=== PATIENT | female | born 1950 | race Caucasian/White ===

== ENCOUNTER 2024-07-02 12:34 | Inpatient (IN) | payer MEDICARE, OTHER ==
--- NOTE | 2024-07-02 12:54 | ED ---
SOB HPI - General Chief Complaint: Shortness of Breath Stated Complaint: AFIB Time Seen by Provider: 07/02/24 12:44 Source: patient, RN notes reviewed, old records reviewed Mode of arrival: EMS Limitations: no limitations - History of Present Illness Initial Comments: This is a 73 female to the ER for evaluation patient presents today for evaluation regards to dyspnea shortness of breath persistent chest pain and shortness of breath here in the emergency department patient shortness of breath weakness and not feeling well here in the ER she does wear oxygen at home but feels like her heart is racing occasional chest pain and severe shortness of br jyotsna SHELBY Complaint: shortness of breath, chest pain, pain with inspiration -: hour(s) Severity: severe Severity scale (1-10): 10 Consistency: constant Improves With: nothing Worsens With: exertion Known History Of: congestive heart failure Context: anxiety Associated Symptoms: denies other symptoms - Related Data Home Medications Medication Instructions Recorded Confirmed Apixaban [Eliquis] 5 mg PO BID 07/02/24 07/02/24 DULoxetine HCL [Cymbalta] 30 mg PO DAILY 07/02/24 07/02/24 Famotidine [Pepcid] 20 mg PO DAILY 07/02/24 07/02/24 Fluticasone/Umeclidin/Vilanter 1 puff INHALATION RT-DAILY 07/02/24 07/02/24 [Trelegy Ellipta 200-62.5-25] Metoprolol Succinate [Metoprolol 25 mg PO BID 07/02/24 07/02/24 Succinate ER] busPIRone HCl [Buspar] 5 mg PO TID 07/02/24 07/02/24 Buprenorphine HCl/Naloxone HCl 2 tab SUBLINGUAL BID 07/03/24 07/03/24 [Buprenorphine-Nalox 2-0.5MG Tb] Previous Rx's Medication Instructions Recorded Bumetanide [BUMEX] 1 mg PO DAILY #30 tab 07/06/24 Allergies Allergy/AdvReac Type Severity Reaction Status Date / Time No Known Allergies Allergy Verified 07/02/24 14:12 Review of Systems ROS Statement: Those systems with pertinent positive or pertinent negative responses have been documented in the HPI. ROS Other: All systems not noted in ROS Statement are negative. Past Medical History Past Medical History: Atrial Fibrillation, Chest Pain / Angina, Heart Failure, COPD, Hyperlipidemia, Hypertension Past Surgical History: Appendectomy, Section, Hysterectomy Additional Past Surgical History / Comment(s): pyloric stenosis , right eye removal Smoking Status: Former smoker General Exam Limitations: no limitations General appearance: alert, in no apparent distress, anxious, in distress Head exam: Present: atraumatic, normocephalic, normal inspection Eye exam: Present: normal appearance, PERRL, EOMI. Absent: scleral icterus, conjunctival injection, periorbital swelling ENT exam: Present: normal exam, mucous membranes moist Neck exam: Present: normal inspection. Absent: tenderness, meningismus, lymphadenopathy Respiratory exam: Present: respiratory distress, wheezes, rhonchi, accessory muscle use, decreased breath sounds, prolonged expiratory. Absent: rales, stridor Cardiovascular Exam: Present: tachycardia, irregular rhythm, normal heart sounds. Absent: systolic murmur, diastolic murmur, rubs, gallop, clicks GI/Abdominal exam: Present: soft, normal bowel sounds. Absent: distended, tenderness, guarding, rebound, rigid Extremities exam: Present: normal inspection, full ROM, normal capillary refill. Absent: tenderness, pedal edema, joint swelling, calf tenderness Back exam: Present: normal inspection Neurological exam: Present: alert, oriented X3, CN II-XII intact Psychiatric exam: Present: normal affect, normal mood Skin exam: Present: warm, dry, intact, normal color. Absent: rash Course Vital Signs 07/02/24 07/02/24 07/02/24 12:36 12:43 14:43 Temperature 98.7 F Pulse Rate 105 H 112 H 85 Respiratory 20 20 20 Rate Blood Pressure 220/113 170/90 O2 Sat by Pulse 95 95 93 L Oximetry 07/02/24 07/02/24 07/02/24 15:00 15:09 15:38 Temperature Pulse Rate 85 89 75 Respiratory 20 20 18 Rate Blood Pressure 170/85 184/101 156/96 O2 Sat by Pulse 93 L 98 99 Oximetry 07/02/24 07/02/24 07/03/24 17:21 18:11 01:20 Temperature Pulse Rate 73 81 81 Respiratory 16 14 16 Rate Blood Pressure 161/81 153/70 156/94 O2 Sat by Pulse 98 98 97 Oximetry 07/03/24 07/03/24 07/03/24 05:30 07:02 07:52 Temperature 98.3 F Pulse Rate 85 77 73 Respiratory 18 19 22 Rate Blood Pressure 189/95 116/95 126/81 O2 Sat by Pulse 98 98 98 Oximetry 07/03/24 07/03/24 07/03/24 08:57 11:03 13:34 Temperature 98.5 F Pulse Rate 86 87 82 Respiratory 20 18 17 Rate Blood Pressure 152/89 161/78 157/79 O2 Sat by Pulse 97 97 97 Oximetry - Reevaluation(s) Reevaluation #1: 07/02/24 19:53 Medical records reviewed Reevaluation #2: 07/02/24 19:53 Patient symptoms are improving blood pressures improved breathing has improved And treatment and blood pressure medication patient's heart rate is improved with key Reevaluation #3: 07/02/24 19:53 Patient informed of results, questions answered, does not feel comfortable going home Reevaluation #4: Was pt. sent in by a medical professional or institution (, PA, STEVEDORING SUPERVISOR, urgent care, hospital, or fpc...) When possible be specific @ -no Did you speak to anyone other than the patient for history (EMS, parent, family, police, friend...)? What history was obtained from this source @ -no Did you review nursing and triage notes (agree or disagree)? Why? @ -agree Are old charts reviewed (outside hosp., previous admission, EMS record, old EKG, old radiological studies, urgent care reports/EKG's, fpc records)? Report findings @ -yes Differential Diagnosis (chest pain, altered mental status, abdominal pain women, abdominal pain men, vaginal bleeding, weakness, fever, dyspnea, syncope, headache, dizziness, GI bleed, back pain, seizure, CVA, palpatations, mental health, musculoskeletal)? @ -prior EKG interpreted by me (3pts min.). @ -yes X-rays interpreted by me (1pt min.). @ -yes negative for acute disease CT interpreted by me (1pt min.). @ -no U/S interpreted by me (1pt. min.). @ -no What testing was considered but not performed or refused? (CT, X-rays, U/S, labs)? Why? @ -none What meds were considered but not given or refused? Why? @ -none Did you discuss the management of the patient with other professionals (professionals i.e. , PA, STEVEDORING SUPERVISOR, lab, RT, psych nurse, social media marketing specialist, weed science research technician, teacher, digital marketing officer, human services case manager)? Give summary @ -no Was smoking cessation discussed for >3mins.? @ -no Was critical care preformed (if so, how long)? @ -yes31 Were there social determinants of health that impacted care today? How? (Homelessness, low income, unemployed, alcoholism, drug addiction, transportation, low edu. Level, literacy, decrease access to med. care, residential, rehab)? @ -none Was there de-escalation of care discussed even if they declined (Discuss DNR or withdrawal of care, Hospice)? DNR status @ -no What co-morbidities impacted this encounter? (DM, HTN, Smoking, COPD, CAD, Cancer, CVA, ARF, Chemo, Hep., AIDS, mental health diagnosis, sleep apnea, morbid obesity)? @ -none Was patient admitted / discharged? Hospital course, mention meds given and route, prescriptions, significant lab abnormalities, going to OR and other pertinent info. @ - 73 female to ER for evaluation of hypertensive emergency atrial fibrillati on with RVR CHF and dyspnea. Patient symptoms are improved here in the ER and continue to improve but will admit for further monitoring of blood pressure control diuresis and heart rate control Admitted Undiagnosed new problem with uncertain prognosis? @ -no Drug Therapy requiring intensive monitoring for toxicity (Heparin, Nitro, Insulin, Cardizem)? @ -no Were any procedures done? @ -no Diagnosis/symptom? @ -Arrhythmia A-fib with RVR CHF Acute, or Chronic, or Acute on Chronic? @ -Acute Uncomplicated (without systemic symptoms) or Complicated (systemic symptoms)? @ -Complicated Side effects of treatment? @ -no Exacerbation, Progression, or Severe Exacerbation? @ -exacerbation Poses a threat to life or bodily function? How? (Chest pain, [place], [place], pneumonia, PE, COPD, DKA, ARF, appy, cholecystitis, CVA, Diverticulitis, Homicidal, Suicidal, threat to staff... and all critical care pts) @ -yes arrhythmia and CHF, extremes of age Reevaluation #5: Differential Dyspnea: Coronary syndrome, arrhythmia, tamponade, asthma, COPD, pulmonary embolism, pneumonia, pneumothorax, pulmonary effusion, anaphylaxis, diabetic ketoacidosis, flailed chest, pulmonary contusion, diaphragmatic rupture, anemia, neuromuscular, this is not meant to be an all-inclusive list. - Consultations Consultation #1: Spoke with Dr. Sr who agrees to admit this patient Medical Decision Making - Medical Decision Making 73 female to ER for evaluation of hypertensive emergency atrial fibrillation with RVR CHF and dyspnea. Patient symptoms are improved here in the ER and continue to improve but will admit for further monitoring of blood pressure control diuresis and heart rate control - Lab Data Result diagrams: 07/05/24 11:20 07/05/24 11:20 Lab Results 07/02/24 07/02/24 07/02/24 Range/Units 12:49 12:49 12:49 WBC 12.8 H (3.8-10.6) k/uL RBC 4.19 (3.80-5.40) m/uL Hgb 12.4 (11.4-16.0) gm/dL Hct 39.4 (34.0-46.0) % MCV 94.0 (80.0-100.0) fL MCH 29.5 (25.0-35.0) pg MCHC 31.4 (31.0-37.0) g/dL RDW 14.2 (11.5-15.5) % Plt Count 216 (150-450) k/uL MPV 8.5 Neutrophils % 78 % Lymphocytes % 17 % Monocytes % 3 % Eosinophils % 1 % Basophils % 0 % Neutrophils # 10.0 H (1.3-7.7) k/uL Lymphocytes # 2.2 (1.0-4.8) k/uL Monocytes # 0.4 (0-1.0) k/uL Eosinophils # 0.1 (0-0.7) k/uL Basophils # 0.0 (0-0.2) k/uL Hypochromasia Slight PT 12.2 (10.0-12.5) sec INR 1.1 (<1.2) APTT 25.6 (22.0-30.0) sec Sodium 138 (137-145) mmol/L Potassium 4.4 (3.5-5.1) mmol/L Chloride 99 (98-107) mmol/L Carbon Dioxide 31 H (22-30) mmol/L Anion Gap 8 mmol/L BUN 11 (7-17) mg/dL Creatinine 0.44 L (0.52-1.04) mg/dL Est GFR (CKD-EPI)AfAm >90 (>60 ml/min/1.73 sqM) Est GFR (CKD-EPI)NonAf >90 (>60 ml/min/1.73 sqM) Glucose 117 H (74-99) mg/dL Plasma Lactic Acid Tee (0.7-2.0) mmol/L Calcium 8.7 (8.4-10.2) mg/dL Phosphorus 2.9 (2.5-4.5) mg/dL Magnesium 1.7 (1.6-2.3) mg/dL Total Bilirubin 0.9 (0.2-1.3) mg/dL AST 36 (14-36) U/L ALT 26 (4-34) U/L Alkaline Phosphatase 55 (38-126) U/L Troponin I (0.000-0.034) ng/mL NT-Pro-B Natriuret Pep 3370 pg/mL Total Protein 7.3 (6.3-8.2) g/dL Albumin 4.2 (3.5-5.0) g/dL TSH 1.800 (0.465-4.680) mIU/L 07/02/24 07/02/24 Range/Units 12:49 12:49 WBC (3.8-10.6) k/uL RBC (3.80-5.40) m/uL Hgb (11.4-16.0) gm/dL Hct (34.0-46.0) % MCV (80.0-100.0) fL MCH (25.0-35.0) pg MCHC (31.0-37.0) g/dL RDW (11.5-15.5) % Plt Count (150-450) k/uL MPV Neutrophils % % Lymphocytes % % Monocytes % % Eosinophils % % Basophils % % Neutrophils # (1.3-7.7) k/uL Lymphocytes # (1.0-4.8) k/uL Monocytes # (0-1.0) k/uL Eosinophils # (0-0.7) k/uL Basophils # (0-0.2) k/uL Hypochromasia PT (10.0-12.5) sec INR (<1.2) APTT (22.0-30.0) sec Sodium (137-145) mmol/L Potassium (3.5-5.1) mmol/L Chloride (98-107) mmol/L Carbon Dioxide (22-30) mmol/L Anion Gap mmol/L BUN (7-17) mg/dL Creatinine (0.52-1.04) mg/dL Est GFR (CKD-EPI)AfAm (>60 ml/min/1.73 sqM) Est GFR (CKD-EPI)NonAf (>60 ml/min/1.73 sqM) Glucose (74-99) mg/dL Plasma Lactic Acid Tee 1.9 (0.7-2.0) mmol/L Calcium (8.4-10.2) mg/dL Phosphorus (2.5-4.5) mg/dL Magnesium (1.6-2.3) mg/dL Total Bilirubin (0.2-1.3) mg/dL AST (14-36) U/L ALT (4-34) U/L Alkaline Phosphatase (38-126) U/L Troponin I <0.012 (0.000-0.034) ng/mL NT-Pro-B Natriuret Pep pg/mL Total Protein (6.3-8.2) g/dL Albumin (3.5-5.0) g/dL TSH (0.465-4.680) mIU/L - EKG Data -: EKG Interpreted by Me (EKG is A-fib 118 QRS 86 QTc 387) - Radiology Data Radiology results: report reviewed (Chest x-ray is positive for CHF), image reviewed Critical Care Time Critical Care Time: Yes Total Critical Care Time: 31 Disposition Clinical Impression: Acute pulmonary edema, Congestive heart failure, Hypertensive emergency, Atrial fibrillation with rapid ventricular response Disposition: ADMITTED IP TO THIS HOSP Condition: Serious Is patient prescribed a controlled substance at d/c from ED?: No Time of Disposition: 19:00
[2024-07-02] MEDS: LABETALOL 5 MG/ML VIAL MDV IVP STA (13:10)
[2024-07-02] MEDS: SODIUM CHLORIDE 0.9% 1,000 ML IV SCH (13:11)
[2024-07-02 13:39] LABS: Basophils % (A) 0 %; Eosinophils # (A) 0.1 k/uL (0-0.7); Eosinophils % (A) 1 %; HCT 39.4 % (34.0-46.0); HGB 12.4 gm/dL (11.4-16.0); Hypochromasia Slight; Lymphocytes # (A) 2.2 k/uL (1.0-4.8); Lymphocytes % (A) 17 %; MCH 29.5 pg (25.0-35.0); MCHC 31.4 g/dL (31.0-37.0); Mean Platelet Volume 8.5; Monocytes # (A) 0.4 k/uL (0-1.0); Monocytes % (A) 3 %; Neutrophils % (A) 78 %; Platelet Count 216 k/uL (150-450); RBC 4.19 m/uL (3.80-5.40); RDW 14.2 % (11.5-15.5); WBC 12.8 k/uL (3.8-10.6)
[2024-07-02 13:52] LABS: ALT 26 U/L (4-34); African American GFR (CKD) >90 (>60 ml/min/1.73 sqM); Albumin 4.2 g/dL (3.5-5.0); Anion Gap 8 mmol/L; Blood Urea Nitrogen 11 mg/dL (7-17); Calcium 8.7 mg/dL (8.4-10.2); Carbon Dioxide 31 mmol/L (22-30); Chloride 99 mmol/L (98-107); Glucose 117 mg/dL (74-99); Non-African American GFR(CKD) >90 (>60 ml/min/1.73 sqM); Phosphorus 2.9 mg/dL (2.5-4.5); Sodium 138 mmol/L (137-145); Total Bilirubin 0.9 mg/dL (0.2-1.3); Total Protein 7.3 g/dL (6.3-8.2)
--- NOTE | 2024-07-02 13:54 | XR ---
EXAMINATION TYPE: XR chest 2V DATE OF EXAM: 07/02/2024 CLINICAL INDICATION: Female, 73 years old with history of Weakness, TECHNIQUE: Frontal and lateral views of the chest are obtained. COMPARISON: Outside chest x-ray January 01, 2024 FINDINGS: There is more prominent cardiomegaly and central vascular congestion on current study on b ackground chronic emphysematous change. The osseous structures are intact. IMPRESSION: Findings suggest CHF exacerbation/fluid overload state. Correlate clinically. [facility], , 07/02/2024 1:52 PM
[2024-07-02 13:57] LABS: INR 1.1 (<1.2); Partial Thromboplastin Time 25.6 sec (22.0-30.0); Prothrombin Time 12.2 sec (10.0-12.5)
[2024-07-02 13:59] LABS: NT-Pro-B-Type Natriuretic Pept 3370 pg/mL
[2024-07-02 14:16] LABS: AST 36 U/L (14-36); Alkaline Phosphatase 55 U/L (38-126); Magnesium 1.7 mg/dL (1.6-2.3); Potassium 4.4 mmol/L (3.5-5.1)
[2024-07-02] MEDS: METOPROLOL TARTRATE 5 MG/5 ML VIAL IVP STA (15:10)
[2024-07-02] MEDS: ACETAMINOPHEN TAB 325 MG TAB PO STA (18:06)
[2024-07-02] MEDS ORDERED: IPRATROPIUM-ALBUTEROL 3 ML NEB INHALATION PRN (19:49)
[2024-07-02] MEDS: FUROSEMIDE 10 MG/ML 4 ML VIAL IV SCH (20:14)
[2024-07-02] MEDS: METOPROLOL TARTRATE 5 MG/5 ML VIAL IVP SCH (21:08)
[2024-07-02] MEDS: NITROGLYCERIN OINT 1 INCH/GM PACKET TOPICAL SCH (23:47)
[2024-07-03] MEDS: ACETAMINOPHEN TAB 325 MG TAB PO PRN (08:48)
--- NOTE | 2024-07-03 09:26 | P.CRDCN ---
History of Present Illness Consult date: 07/03/24 History of present illness: The patient is a pleasant 73-year-old female patient with a past medical history significant for chronic hypoxic respiratory failure on oxygen at home at 2 L as well as history of heart failure and permanent atrial fibrillation as well as multiple comorbid conditions. She presented to the emergency department because she had a visiting nurse checking on her yesterday where she was more short of breath and also she was slightly hypoxic and also was having bilateral lower extremities edema more than her baseline which she was advised to come to the hospital. She underwent further evaluation including an EKG showing atrial fibrillation with controlled heart rate and she is known to have permanent atrial fibrillation. NT proBNP came to be elevated at 3000 with a chest x-ray showed finding consistent with heart failure. She was started on IV diuretics with improvement in her symptoms. Troponin came to be unremarkable. The rest of the blood work came in to be unremarkable. The physical examination is remarkable for irregular rhythm with diminished breathing sounds bilaterally and mild to moderate bilateral lower extremities edema Assessment Heart failure exacerbation of unknown etiology Permanent atrial fibrillation with controlled heart rate Chronic hypoxic respiratory failure Multiple comorbid conditions Plan Continue the current medical regimen including oral anticoagulation and AV betito key agents Follow-up on the echocardiogram which was ordered earlier Continue IV diuretics for additional 24 hours Monitor the kidney function and electrolytes Follow-up with the patient Past Medical History Past Medical History: Atrial Fibrillation, Chest Pain / Angina, Heart Failure, COPD, Hyperlipidemia, Hypertension Past Surgical History: Appendectomy, Section, Hysterectomy Additional Past Surgical History / Comment(s): pyloric stenosis , right eye removal Smoking Status: Former smoker Medications and Allergies Home Medications Medication Instructions Recorded Confirmed Type Apixaban [Eliquis] 5 mg PO BID 07/02/24 07/02/24 History DULoxetine HCL [Cymbalta] 30 mg PO DAILY 07/02/24 07/02/24 History Famotidine [Pepcid] 20 mg PO DAILY 07/02/24 07/02/24 History Fluticasone/Umeclidin/Vilanter 1 puff INHALATION RT-DAILY 07/02/24 07/02/24 History [Trelegy Ellipta 200-62.5-25] Metoprolol Succinate [Metoprolol 25 mg PO BID 07/02/24 07/02/24 History Succinate ER] busPIRone HCl [Buspar] 5 mg PO TID 07/02/24 07/02/24 History Allergies Allergy/AdvReac Type Severity Reaction Status Date / Time No Known Allergies Allergy Verified 07/02/24 14:12 Physical Exam Vitals: Vital Signs Temp Pulse Resp BP Pulse Ox 07/03/24 08:57 86 20 152/89 97 07/03/24 07:52 98.3 F 73 22 126/81 98 07/03/24 07:02 77 19 116/95 98 07/03/24 05:30 85 18 189/95 98 07/03/24 01:20 81 16 156/94 97 07/02/24 18:11 81 14 153/70 98 07/02/24 17:21 73 16 161/81 98 07/02/24 15:38 75 18 156/96 99 07/02/24 15:09 89 20 184/101 98 07/02/24 15:00 85 20 170/85 93 L 07/02/24 14:43 85 20 170/90 93 L 07/02/24 12:43 112 H 20 220/113 95 07/02/24 12:36 98.7 F 105 H 20 95 Intake and Output 07/02/24 07/03/24 07/03/24 22:59 06:59 14:59 Output Total 1000 600 Balance -1000 -600 Output: Urine 1000 600 Results 07/02/24 12:49 07/02/24 12:49 Cardiac Enzymes 07/02/24 07/02/24 07/02/24 Range/Units 12:49 12:49 20:12 AST 36 (14-36) U/L Troponin I <0.012 <0.012 (0.000-0.034) ng/mL 07/02/24 Range/Units 23:24 AST (14-36) U/L Troponin I <0.012 (0.000-0.034) ng/mL Coagulation 07/02/24 Range/Units 12:49 PT 12.2 (10.0-12.5) sec APTT 25.6 (22.0-30.0) sec CBC 07/02/24 Range/Units 12:49 WBC 12.8 H (3.8-10.6) k/uL RBC 4.19 (3.80-5.40) m/uL Hgb 12.4 (11.4-16.0) gm/dL Hct 39.4 (34.0-46.0) % Plt Count 216 (150-450) k/uL Comprehensive Metabolic Panel 07/02/24 Range/Units 12:49 Sodium 138 (137-145) mmol/L Potassium 4.4 (3.5-5.1) mmol/L Chloride 99 (98-107) mmol/L Carbon Dioxide 31 H (22-30) mmol/L BUN 11 (7-17) mg/dL Creatinine 0.44 L (0.52-1.04) mg/dL Glucose 117 H (74-99) mg/dL Calcium 8.7 (8.4-10.2) mg/dL AST 36 (14-36) U/L ALT 26 (4-34) U/L Alkaline Phosphatase 55 (38-126) U/L Total Protein 7.3 (6.3-8.2) g/dL Albumin 4.2 (3.5-5.0) g/dL Current Medications Generic Name Dose Route Start Last Admin Trade Name Freq PRN Reason Stop Dose Admin Acetaminophen 650 mg 07/03/24 08:33 07/03/24 08:48 Acetaminophen Tab 325 Mg Tab PO 650 mg Q6HR PRN Administration Fever and/ or Pain Albuterol/Ipratropium 3 ml 07/02/24 19:49 Ipratropium-Albuterol 3 Ml Neb INHALATION RT-QID PRN Shortness Of Breath Or Wheezing Furosemide 40 mg 07/02/24 20:00 07/03/24 08:46 Furosemide 10 Mg/Ml 4 Ml Vial IV 40 mg Q12H QUINN Administration Sodium Chloride 1,000 mls @ 130 mls/hr 07/02/24 13:00 07/03/24 05:34 Saline 0.9% IV 130 mls/hr .Q7H42M QUINN Administration Metoprolol Tartrate 5 mg 07/02/24 21:00 07/03/24 08:56 Metoprolol Tartrate 5 Mg/5 Ml Vial IVP Not Given BID QUINN Nitroglycerin 1 inch 07/03/24 00:00 07/03/24 06:15 Nitroglycerin Oint 1 Inch/Gm Packet TOPICAL 07/04/24 00:00 1 inch Q6HR QUINN Administration Intake and Output 07/02/24 07/03/24 07/03/24 22:59 06:59 14:59 Output Total 1000 600 Balance -1000 -600 Output: Urine 1000 600 07/02/24 12:49 07/02/24 12:49
[2024-07-03] MEDS: METOPROLOL SUCCINATE (ER) 25 MG TAB.ER.24H PO SCH (11:01)
[2024-07-03] MEDS: DULoxetine HCL 30 MG CAPSULE.DR PO SCH (11:01)
[2024-07-03] MEDS: busPIRone HCl 5 MG TAB PO SCH (11:01)
[2024-07-03] MEDS: APIXABAN 5 MG TAB PO SCH (11:01)
[2024-07-03] MEDS: FAMOTIDINE 20 MG TAB PO SCH (11:02)
[2024-07-03] MEDS: TIOTROPIUM 2.5 MCG INHALER INHALATION SCH (13:02)
[2024-07-03] MEDS ORDERED: busPIRone HCl 5 MG TAB PO SCH (16:00)
[2024-07-03 16:38] LABS: Glucose,Whole Blood 135 mg/dL (70-110)
[2024-07-03] MEDS: KETOROLAC 15 MG/ML 1 ML VIAL IVP STA (17:22)
[2024-07-03] MEDS: ONDANSETRON 4 MG/2 ML VIAL IVP PRN (17:24)
--- NOTE | 2024-07-03 18:22 | CA ---
Transthoracic Echo Report Name: Carolina Rowe Age: 73 Gender: F : 1950 Exam Date: 07/03/2024 15:03 Exam Location: [facility] Ht (in): 64 Wt (lb): 241 Ordering Physician: Morgan Carver MD ([id number]) Attending/Referring Phys: Anchorman Farrah Nguyen RDCS Procedure CPT: Indications: chf Cardiac Hx: Technical Quality: Fair Contrast 1: Total Dose (mL): Contrast 2: Total Dose (mL): MEASUREMENTS (Male / Female) Normal Values 2D ECHO LV Diastolic Diameter PLAX 4.5 cm 4.2 - 5.9 / 3.9 - 5.3 cm LV Systolic Diameter PLAX 3.2 cm IVS Diastolic Thickness 1.1 cm 0.6 - 1.0 / 0.6 - 0.9 cm LVPW Diastolic Thickness 1.1 cm 0.6 - 1.0 / 0.6 - 0.9 cm LV Relative Wall Thickness 0.5 RV Internal Dim ED PLAX 3.6 cm LA Systolic Diameter LX 4.1 cm 3.0 - 4.0 / 2.7 - 3.8 cm LV Diastolic Volume MOD BP 81.8 cm??? 67 - 155 / 56 - 104 cm??? LV Systolic Volume MOD BP 50.5 cm??? 22 - 58 / 19 - 49 cm??? LV Ejection Fraction MOD BP 38.3 % >= 55 % LV Cardiac Index MOD BP 1139.9 cm???/min???m??? LV Diastolic Volume MOD 4C 86.9 cm??? LV Systolic Volume MOD 4C 46.3 cm??? LV Ejection Fraction MOD 4C 46.7 % LV Cardiac Index MOD 4C 1479.0 cm???/min???m??? LV Diastolic Length 4C 6.8 cm LV Systolic Length 4C 5.9 cm LV Diastolic Volume MOD 2C 75.8 cm??? LV Systolic Volume MOD 2C 49.7 cm??? LV Ejection Fraction MOD 2C 34.3 % LV Cardiac Index MOD 2C 947.4 cm???/min???m??? LV Diastolic Length 2C 7.0 cm LV Systolic Length 2C 6.6 cm LA Volume 63.6 cm??? 18 - 58 / 22 - 52 cm??? LA Volume Index 27.9 cm???/m??? 16 - 28 cm???/m??? M-MODE Aortic Root Diameter MM 3.3 cm DOPPLER AV Peak Velocity 155.9 cm/s AV Peak Gradient 9.7 mmHg MV Area PHT 4.2 cm??? MV Deceleration Time 176.0 ms TR Peak Velocity 315.1 cm/s TR Peak Gradient 39.7 mmHg Right Ventricular Systolic Press 52.0 mmHg FINDINGS Left Ventricle Left ventricular ejection fraction is estimated at 50-55 %. Mildly increased septal wall thickness. Mildly increased posterior wall thickness. Mildly increased left ventricular systolic volume. No obvious regional wall motion abnormalities. Right Ventricle Mild right ventricular dilatation. Moderate pulmonary hypertension. Right Atrium Severe right atrial dilatation. No right atrial thrombus or mass seen. Left Atrium Mildly increased left atrial diameter. Moderately increased left atrial volume. Mildly increased left atrial area. No left atrial thrombus or mass present. Mitral Valve Structurally normal mitral valve. Mild mitral regurgitation. Aortic Valve Trileaflet aortic valve. Diffuse thickening (sclerosis) of the aortic valve cusps without reduced excursion. Tricuspid Valve Structurally normal tricuspid valve. Mild tricuspid regurgitation. Pulmonic Valve Pulmonic valve not well visualized. Pericardium No pericardial effusion. Aorta Normal size aortic root and proximal ascending aorta. CONCLUSIONS Normal LV systolic function Poorly visualized intracardiac valves Moderate pulmonary hypertension Mild RV enlargement Previewed by: Dr. Morgan Carver MD (Electronically Signed) Final Date: 03 July 2024 18:21
[2024-07-03] MEDS: SYMBICORT 160-4.5 MCG INHALER INHALATION SCH (19:58)
[2024-07-03] MEDS: BUPRENORPHINE SUBLINGUAL SCH (20:16)
[2024-07-03] MEDS: NALOXONE SUBLINGUAL SCH (20:16)
[2024-07-03] MEDS ORDERED: [UNRECOGNIZED DRUG - OTHER] SUBLINGUAL SCH (21:00)
[2024-07-03] MEDS ORDERED: APIXABAN 5 MG TAB PO SCH (21:00)
[2024-07-03] MEDS ORDERED: METOPROLOL SUCCINATE (ER) 25 MG TAB.ER.24H PO SCH (21:00)
[2024-07-03] MEDS ORDERED: NALOXONE HCL SUBLINGUAL SCH (21:00)
[2024-07-03] MEDS ORDERED: BUPRENORPHINE HCL SUBLINGUAL SCH (21:00)
--- NOTE | 2024-07-04 07:06 | P.PN ---
Subjective Progress Note Date: 07/04/24 The patient is a pleasant 73-year-old female patient with a past medical history significant for chronic hypoxic respiratory failure on oxygen at home at 2 L as well as history of heart failure and permanent atrial fibrillation as well as multiple comorbid conditions. She presented to the emergency department because she had a visiting nurse checking on her yesterday where she was more short of breath and also she was slightly hypoxic and also was having bilateral lower extremities edema more than her baseline which she was advised to come to the hospital. She underwent further evaluation including an EKG showing atrial fibrillation with controlled heart rate and she is known to have permanent a trial fibrillation. NT proBNP came to be elevated at 3000 with a chest x-ray showed finding consistent with heart failure. She was started on IV diuretics with improvement in her symptoms. Troponin came to be unremarkable. The rest of the blood work came in to be unremarkable. The physical examination is remarkable for irregular rhythm with diminished breathing sounds bilaterally and mild to moderate bilateral lower extremities edema July 04, 2024 The patient was seen and evaluated this morning. Overall she is doing better and feeling better. The pressure has improved as well as the heart rate. The echo showed normal LV systolic function with no significant valvular abnormalities. She continues to be on IV Lasix. No blood work as of this morning. The physical examination is remarkable for irregular rhythm with a systolic murmur at the right upper sternal border and diminished breathing sounds bilaterally and bilateral lower extremities nonpitting edema noted. Assessment Heart failure exacerbation of unknown etiology Permanent atrial fibrillation with controlled heart rate Chronic hypoxic respiratory failure Multiple comorbid conditions Plan Continue the current medical regimen including oral anticoagulation and AV betito key agents Continue IV Lasix for additional 24 hours Continue monitor the kidney function and electrolytes Possible discharge in the next 24 hours Objective - Vital Signs Vital signs: Vital Signs Temp 98.7 F 07/04/24 03:20 Pulse 80 07/04/24 03:20 Resp 18 07/04/24 03:20 BP 135/72 07/04/24 03:20 Pulse Ox 95 07/04/24 03:20 FiO2 Intake & Output 07/03/24 07/04/24 07/04/24 18:59 06:59 18:59 Intake Total 240 Output Total 975 650 Balance -735 -650 Weight 109.4 kg 87.5 kg Intake: Oral 240 Output: Urine 975 650 Other: # Voids 1 - Labs CBC & Chem 7: 07/02/24 12:49 07/02/24 12:49 Labs: Abnormal Lab Results - Last 24 Hours (Table) 07/03/24 Range/Units 16:36 POC Glucose (mg/dL) 135 H (70-110) mg/dL
[2024-07-04] MEDS ORDERED: FAMOTIDINE 20 MG TAB PO SCH (09:00)
[2024-07-04] MEDS ORDERED: DULoxetine HCL 30 MG CAPSULE.DR PO SCH (09:00)
[2024-07-04] MEDS: guaiFENesin 600 MG TABLET.ER PO SCH (18:08)
[2024-07-04] MEDS: NYSTATIN 100,000 UNIT/GM POWD 15 GM TOPICAL PRN (22:27)
[2024-07-05 10:15] VITALS: BMI 33.7
--- NOTE | 2024-07-05 11:31 | XR ---
EXAMINATION TYPE: XR chest 1V portable DATE OF EXAM: 07/05/2024 11:08 AM COMPARISON: Chest radiographs from 07/02/2024. CLINICAL INDICATION: Female, 73 years old with history of CHF; TECHNIQUE: XR chest 1V portable Frontal view of the chest. FINDINGS: Lungs/Pleura: There is no evidence of pleural effusion, focal consolidation, or pneumothorax. Pulmonary vascularity: Unremarkable. Heart/mediastinum: Cardiomediastinal silhouette is unremarkable. Atherosclerotic calcifications are seen in the aorta. Musculoskeletal: No acute osseous pathology. IMPRESSION: No acute cardiopulmonary disease/process. [facility], , 07/05/2024 11:29 AM
[2024-07-05 12:07] LABS: Basophils % (A) 0 %; Eosinophils # (A) 0.2 k/uL (0-0.7); Eosinophils % (A) 2 %; HCT 43.7 % (34.0-46.0); HGB 13.4 gm/dL (11.4-16.0); Hypochromasia Marked; Lymphocytes # (A) 2.9 k/uL (1.0-4.8); Lymphocytes % (A) 28 %; MCH 29.6 pg (25.0-35.0); MCHC 30.8 g/dL (31.0-37.0); MCV 96.2 fL (80.0-100.0); Mean Platelet Volume 8.5; Monocytes # (A) 0.5 k/uL (0-1.0); Monocytes % (A) 5 %; Neutrophils # (A) 6.7 k/uL (1.3-7.7); Neutrophils % (A) 64 %; Platelet Count 222 k/uL (150-450); RBC 4.54 m/uL (3.80-5.40); RDW 13.9 % (11.5-15.5); WBC 10.5 k/uL (3.8-10.6)
[2024-07-05 12:26] LABS: ALT 26 U/L (4-34); AST 35 U/L (14-36); African American GFR (CKD) >90 (>60 ml/min/1.73 sqM); Albumin 4.1 g/dL (3.5-5.0); Alkaline Phosphatase 61 U/L (38-126); Blood Urea Nitrogen 23 mg/dL (7-17); Calcium 9.3 mg/dL (8.4-10.2); Chloride 92 mmol/L (98-107); Glucose 121 mg/dL (74-99); Non-African American GFR(CKD) >90 (>60 ml/min/1.73 sqM); Sodium 140 mmol/L (137-145); Total Bilirubin 0.5 mg/dL (0.2-1.3); Total Protein 7.3 g/dL (6.3-8.2)
[2024-07-05 12:32] LABS: Anion Gap 10 mmol/L
[2024-07-05 12:38] LABS: Carbon Dioxide 38 mmol/L (22-30)
--- NOTE | 2024-07-05 14:21 | PN ---
PROGRESS NOTE DATE OF SERVICE: 07/04/2024 CHIEF COMPLAINT: Uncontrolled hypertension and acute congestive heart failure. HISTORY OF PRESENT ILLNESS: This lady is doing much better. She is much less short of breath. Blood pressure is coming down nicely. Echocardiogram shows an ejection fraction of 50% to 55% and pulmonary hypertension. BNP is 3370. REVIEW OF SYSTEMS: She has no complaints of chest pain, shortness of breath, etc. PHYSICAL EXAMINATION: CHEST: Has much improved. There are only occasional rales. CARDIAC: Unremarkable. ABDOMEN: Soft, nontender. IMPRESSION: 1. Acute congestive heart failure. 2. Uncontrolled hypertension. 3. Pulmonary hypertension. PLAN: 1. Increase activity. 2. Possibly home tomorrow. MMODL / IJN: [id number] /
--- NOTE | 2024-07-05 14:21 | HP ---
HISTORY AND PHYSICAL CHIEF COMPLAINT: Uncontrolled hypertension, shortness of breath, and congestive heart failure. HISTORY OF PRESENT ILLNESS: This is another admission for this 73-year-old female who presented to the emergency room with shortness of breath. Blood pressure was markedly elevated at 220/113 with a pulse of 112 in atrial fibrillation. REVIEW OF SYSTEMS: She has had no fever, chills, hemoptysis, chest pain, syncope, etc. Past medical history, family history and personal and social histories are all otherwise unremarkable. She is not allergic to any medication. She has been on Buspar, Eliquis, duloxetine, Suboxone, iron, lisinopril, Trelegy, Toprol, and Lasix. She used to smoke, but no longer. PHYSICAL EXAMINATION: VITAL SIGNS: Blood pressure is 220/113 with atrial fibrillation and ventricular response rate of 112. 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 CHEST: Demonstrated poor breath sounds with rales throughout and decreased breath sounds. CARDIAC: Demonstrates tachycardia. ABDOMEN: Soft, nontender. EXTREMITIES: Normal. NEUROLOGICAL: She is intact. She is admitted to the hospital with diagnoses of: 1. Acute congestive heart failure. 2. Uncontrolled hypertension. 3. Atrial fibrillation. PLAN: 1. Bed rest. 2. IV fluids. 3. Diuresis. 4. Uncontrolled hypertension and arrhythmia. 5. Cardiology consult. MMODL / IJN: [id number] /
--- NOTE | 2024-07-05 14:22 | PN ---
PROGRESS NOTE DATE OF SERVICE: 07/03/2024 CHIEF COMPLAINT: Congestive heart failure and uncontrolled hypertension. HISTORY OF PRESENT ILLNESS: This lady's blood pressure is starting to come down, but is still not normal. She is not having any further chest pain. PHYSICAL EXAMINATION: CHEST: She has scattered rales throughout the chest. CARDIAC: Normal. VITAL SIGNS: Blood pressure is 152/92. IMPRESSION: 1. Congestive heart failure. 2. Uncontrolled hypertension. PLAN: Increase activity and continue to monitor her blood pressure and congestive heart failure. MMODL / IJN: [id number] /
--- NOTE | 2024-07-05 14:55 | P.PN ---
Subjective Progress Note Date: 07/05/24 The patient is a pleasant 73-year-old female patient with a past medical history significant for chronic hypoxic respiratory failure on oxygen at home at 2 L as well as history of heart failure and permanent atrial fibrillation as well as multiple comorbid conditions. She presented to the emergency department because she had a visiting nurse checking on her yesterday where she was more short of breath and also she was slightly hypoxic and also was having bilateral lower extremities edema more than her baseline which she was advised to come to the hospital. She underwent further evaluation including an EKG showing atrial fibrillation with controlled heart rate and she is known to have permanent a trial fibrillation. NT proBNP came to be elevated at 3000 with a chest x-ray showed finding consistent with heart failure. She was started on IV diuretics with improvement in her symptoms. Troponin came to be unremarkable. The rest of the blood work came in to be unremarkable. The physical examination is remarkable for irregular rhythm with diminished breathing sounds bilaterally and mild to moderate bilateral lower extremities edema July 04, 2024 The patient was seen and evaluated this morning. Overall she is doing better and feeling better. The pressure has improved as well as the heart rate. The echo showed normal LV systolic function with no significant valvular abnormalities. She continues to be on IV Lasix. No blood work as of this morning. The physical examination is remarkable for irregular rhythm with a systolic murmur at the right upper sternal border and diminished breathing sounds bilaterally and bilateral lower extremities nonpitting edema noted. 07/05/2024 Patient is seen and examined at bedside this a.m. Patient reports that she is feeling better since time of admission. She is in rate controlled atrial fibrillation at this time Regarding fluid status she appears to be at her baseline state with chronic lower extremity edema. She denies having any new or worsening shortness of breath. On exam S1-S2 is audible, irregularly irregular pulse, mild systolic murmur audible Lungs are clear to auscultate with no crackles or rhonchi Abdomen is nontender, bowel sounds are positive And oriented, no focal neurological deficits, detailed neuroexam was not performed 1-2+ pitting edema bilateral extremity Assessment Acute on chronic HFpEF exacerbation, currently euvolemic Permanent atrial fibrillation with controlled heart rate Chronic hypoxic respiratory failure Multiple comorbid conditions Echo from this admission showed a preserved LV systolic function with a EF of 55%. The quality of the echo was limited with poor visualization of the valvular function. Plan Continue her current cardiac medications, which includes Eliquis 5 mg twice daily Discontinue Lasix and start Bumex 1 mg p.o. daily. This should be the one she should be discharged on for home Patient is cleared from cardiovascular standpoint Recommend outpatient follow-up with primary cardiology specialist in next 1 to 2 weeks. Objective - Vital Signs Vital signs: Vital Signs Temp 97.8 F 07/05/24 08:00 Pulse 75 07/05/24 11:14 Resp 18 07/05/24 11:14 BP 156/67 07/05/24 08:00 Pulse Ox 96 07/05/24 08:00 FiO2 Intake & Output 07/04/24 07/05/24 07/05/24 18:59 06:59 18:59 Intake Total 720 237 360 Output Total 1600 1450 Balance -880 -1213 360 Weight 89 kg 89 kg Intake: Oral 720 237 360 Output: Urine 1600 1450 Other: Voiding Method External Catheter External Catheter External Catheter - Labs CBC & Chem 7: 07/05/24 11:20 07/05/24 11:20 Labs: Abnormal Lab Results - Last 24 Hours (Table) 07/05/24 07/05/24 Range/Units 11:20 11:20 MCHC 30.8 L (31.0-37.0) g/dL Chloride 92 L (98-107) mmol/L Carbon Dioxide 38 H (22-30) mmol/L BUN 23 H (7-17) mg/dL Glucose 121 H (74-99) mg/dL
--- NOTE | 2024-07-05 14:58 | PN ---
PROGRESS NOTE DATE OF SERVICE: 07/05/2024 CHIEF COMPLAINT: Congestive heart failure, hypertension. HISTORY OF PRESENT ILLNESS: This lady is doing a little bit better. She is a little bit less short of breath. Blood pressure is greatly improved. PHYSICAL EXAMINATION: CHEST: She still has occasional rales posteriorly. CARDIAC: Normal. ABDOMEN: Soft, nontender. IMPRESSION: 1. Acute congestive heart failure. 2. Uncontrolled hypertension. PLAN: 1. Repeat chest x-ray and laboratory studies. 2. Increase activity. MMODL / IJN: [id number] /
[2024-07-06] MEDS: BUMETANIDE 1 MG TAB PO SCH (09:57)
[2024-07-07 02:00] VITALS: RESP 19
[2024-07-07 14:49] VITALS: BP 123/70; PULSE 75; TEMP 98.5
--- NOTE | 2024-07-08 02:25 | PN ---
PROGRESS NOTE DATE OF SERVICE: 07/07/2024 CHIEF COMPLAINT: Acute congestive heart failure. HISTORY OF PRESENT ILLNESS: This lady is doing well. When she was asked this morning if she is ready to go, she stated that she was. She is not having any further nausea or vomiting. The nurse called later that she was complaining of vomiting and headache, but nobody has seen her vomit. PHYSICAL EXAMINATION: CHEST: Clear. CARDIAC: Normal. ABDOMEN: Soft and nontender. IMPRESSION: 1. History of acute congestive heart failure. 2. Hypertension. 3. History of nausea and vomiting. 4. Headache. PLAN: Try to discharge the patient. If she refuses to go, she will have to be seen by Neurology. MMODL / IJN: [id number] /
--- NOTE | 2024-07-08 08:10 | PN ---
PROGRESS NOTE CHIEF COMPLAINT: Uncontrolled hypertension and CHF. HISTORY OF PRESENT ILLNESS: It was planned that this lady would go, but now she is complaining of nausea and vomiting. PHYSICAL EXAMINATION: CHEST: Clear. CARDIAC EXAM: Normal. ABDOMEN: Soft and nontender. IMPRESSION: 1. Uncontrolled hypertension. 2. Congestive heart failure. 3. Nausea and vomiting. PLAN: 1. Hold discharge. 2. Antiemetics and continue monitoring her signs and symptoms as well as vital signs. MMODL / IJN: [id number] /
--- NOTE | 2024-07-08 23:07 | DS ---
DISCHARGE SUMMARY CHIEF COMPLAINT: Acute pulmonary edema, shortness of breath. HISTORY OF PRESENT ILLNESS AND PHYSICAL EXAMINATION: Details of this lady's history and physical can be found in the initial workup. LABORATORY STUDIES: While she was in the hospital, she had laboratory studies, details of which can be found in the laboratory section of her chart. COURSE IN THE HOSPITAL: After admission, she was placed on bedrest, started on intravenous fluids and she was diuresed. Blood pressure was brought under control. She was stabilized and doing well. It was planned that she could be discharged and then she developed nausea and vomiting. This was treated and subsided and it was felt that she could go home on the . She will be followed up as an outpatient. FINAL DIAGNOSES: 1. Acute congestive heart failure. 2. Hypertension. 3. Gastroenteritis. OPERATIONS: None. CONSULTATIONS: Cardiology. She is improved. BEATRICE / AUDREY: [id number] /
== END 2024-07-07 15:51 | disposition home or self-care (01) | DRG 291 ==
LOC: EC 12:34 → 3SCARD 19:51 → 4SSUR 07-05 18:25
PROVIDERS: ADMIT Family Medicine; ATTEND Family Medicine
DX: I11.0 Hypertensive heart disease with heart failure (principal); I50.33 Acute on chronic diastolic (congestive) heart failure; I16.1 Hypertensive emergency; I27.20 Pulmonary hypertension, unspecified; Z79.01 Long term (current) use of anticoagulants; J44.9 Chronic obstructive pulmonary disease, unspecified; I48.21 Permanent atrial fibrillation; J96.11 Chronic respiratory failure with hypoxia; E78.5 Hyperlipidemia, unspecified; F41.9 Anxiety disorder, unspecified; Z79.899 Other long term (current) drug therapy; Z87.891 Personal history of nicotine dependence; Z90.01 Acquired absence of eye; Z90.710 Acquired absence of both cervix and uterus; Z87.19 Personal history of other diseases of the digestive system
CPT/HCPCS: 36415; 71045; 71046; 80053; 83605; 83735; 83880; 84100; 84443; 84484; 85025; 85610; 85730; 93005; 93306; 94640; 94760; 96361; 96374; 96375; 96376; 99291

== ENCOUNTER 2024-07-13 11:28 | Emergency (ER) | payer MEDICARE, OTHER ==
[2024-07-13 11:38] VITALS: RESP 18
--- NOTE | 2024-07-13 11:58 | ED ---
General Adult HPI - General Chief complaint: Recheck/Abnormal Lab/Rx Stated complaint: Dizziness Time Seen by Provider: 07/13/24 11:38 Source: patient, EMS Mode of arrival: EMS Limitations: no limitations - History of Present Illness Initial comments: Dictation was produced using [employer] dictation software. please excuse any grammatical, word or spelling errors. Chief Complaint: 73-year-old female states that she feels weak History of Present Illness: Patient 73-year-old female multiple comorbidities. She has history of A-fib takes anticoagulation medications history of cardiomyopathy. States that she is here today for couple days of feeling ma laised and weak. Patient has history of hypertension. Denies any pain complaints. States that she has sore throat. States she feels hot. Denies any pain complaints. No shortness of breath. No headache. The ROS documented in this emergency department record has been reviewed and confirmed by me. Those systems with pertinent positive or negative responses have been documented in the HPI. All other systems are other negative and/or noncontributory. - Related Data Home Medications Medication Instructions Recorded Confirmed Apixaban [Eliquis] 5 mg PO BID 07/02/24 07/13/24 DULoxetine HCL [Cymbalta] 30 mg PO DAILY 07/02/24 07/13/24 Famotidine [Pepcid] 20 mg PO DAILY 07/02/24 07/13/24 Fluticasone/Umeclidin/Vilanter 1 puff INHALATION RT-DAILY 07/02/24 07/13/24 [Trelegy Ellipta 200-62.5-25] Metoprolol Succinate [Metoprolol 25 mg PO BID 07/02/24 07/13/24 Succinate ER] busPIRone HCl [Buspar] 5 mg PO TID 07/02/24 07/13/24 Buprenorphine HCl/Naloxone HCl 2 tab SUBLINGUAL BID 07/03/24 07/13/24 [Buprenorphine-Nalox 2-0.5MG Tb] Previous Rx's Medication Instructions Recorded Bumetanide [BUMEX] 1 mg PO DAILY #30 tab 07/06/24 Allergies Allergy/AdvReac Type Severity Reaction Status Date / Time No Known Allergies Allergy Verified 07/13/24 13:09 Review of Systems ROS Statement: Those systems with pertinent positive or pertinent negative responses have been documented in the HPI. ROS Other: All systems not noted in ROS Statement are negative. Past Medical History Past Medical History: Atrial Fibrillation, Chest Pain / Angina, Heart Failure, COPD, Hyperlipidemia, Hypertension Additional Past Medical History / Comment(s): Diverticulitis History of Any Multi-Drug Resistant Organisms: None Reported Past Surgical History: Appendectomy, Section, Hysterectomy Additional Past Surgical History / Comment(s): pyloric stenosis , right eye removal Past Psychological History: Anxiety, Depression Smoking Status: Former smoker General Exam - General Exam Comments Initial Comments: PHYSICAL EXAM: General Impression: Alert and oriented x3, not in acute distress HEENT: Normocephalic atraumatic, extra-ocular movements intact, pupils equal and reactive to light bilaterally, mucous membranes moist. Cardiovascular: Heart regular rate and rhythm Chest: Able to complete full sentences, no retractions, no tachypnea Abdomen: abdomen soft, non-tender, non-distended, no organomegaly Musculoskeletal: Pulses present and equal in all extremities, no peripheral edema Motor: no focal deficits noted Neurological: CN II-XII grossly intact, no focal motor or sensory deficits noted Skin: Intact with no visualized rashes Psych: Normal affect and mood Limitations: no limitations Course Vital Signs 07/13/24 07/13/24 07/13/24 11:31 12:52 13:43 Temperature 98.6 F 97.6 F Pulse Rate 113 H 81 85 Respiratory 18 18 18 Rate Blood Pressure 146/109 161/119 166/83 O2 Sat by Pulse 95 96 97 Oximetry EKG Findings - EKG Comments: EKG Findings:: My EKG interpretation: Ventricular rate 106, A-fib with RVR, QRS 99, QTc 406. No QTC prolongation, no ST or T-wave changes noted. Overall, this EKG is unremarkable Medical Decision Making - Medical Decision Making Was pt. sent in by a medical professional or institution (, PA, DELIVERY DRIVER/SUPERVISOR, urgent care, hospital, or [place] health care facility...) When possible be specific @ -No Did you speak to anyone other than the patient for history (EMS, parent, family, police, friend...)? What history was obtained from this source @ -No Did you review nursing and triage notes (agree or disagree)? Why? @ -I reviewed and agree with nursing and triage notes Were old charts reviewed (outside hosp., previous admission, EMS record, old EKG, old radiological studies, urgent care reports/EKG's, [place] health care facility records)? Report findings @ -No old charts were reviewed Differential Diagnosis (chest pain, altered mental status, abdominal pain women, abdominal pain men, vaginal bleeding, musculoskeletal, weakness, fever, dyspnea, syncope, headache, dizziness, GI bleed, back pain, seizure, CVA, palpatations, mental health)? @ -Differential Weakness: Hypoglycemia, shock, sepsis, hyponatremia, anemia, infection, OH, ETOH, adverse medicine reaction, overdose, stroke, this is not meant to be an all-inclusive list. EKG interpreted by me (3pts min.). @ -See above X-rays interpreted by me (1pt min.). @ -None done CT interpreted by me (1pt min.). @ -None done U/S interpreted by me (1pt. min.). @ -None done What testing was considered but not performed or refused? (CT, X-rays, U/S, labs)? Why? @ -None What meds were considered but not given or refused? Why? @ -None Was smoking cessation discussed for >3mins.? @ -No Were there social determinants of health that impacted care today? How? (Homelessness, low income, unemployed, alcoholism, drug addiction, transportation, low edu. Level, literacy, decrease access to med. care, [facility], rehab)? @ -No Was there de-escalation of care discussed even if they declined (Discuss DNR or withdrawal of care, Hospice)? DNR status @ -No What co-morbidities impacted this encounter? (DM, HTN, Smoking, COPD, CAD, Cancer, CVA, ARF, Chemo, Hep., AIDS, mental health diagnosis, sleep apnea, morbid obesity)? @ -None Was patient admitted / discharged? Hospital course, mention meds given and route, prescriptions, significant lab abnormalities, going to OR and other pertinent info. @ -23-year-old female with multiple comorbidities presents to the emergency department for malaise. She was triaged by nurse for hypertension. Vital signs upon arrival are within acceptable limits. Patient has no symptoms of hypertensive emergency. Initial blood pressure 146/109. Patient to me reported symptoms of malaise sore throat possible URI type symptoms. Laboratory evaluation is unremarkable. Urinalysis negative. Viral testing is negative. Strep test is negative. Patient given IV fluids will be discharged vies follow- up with primary care doctor. Did you discuss the management of the patient with other professionals (professionals i.e. , PA, DELIVERY DRIVER/SUPERVISOR, lab, RT, psych nurse, social science professor, coating and baking operator, teacher, traffic officer, case preparer and liner)? Give summary @ -No Was critical care preformed (if so, how long)? @ -No Undiagnosed new problem with uncertain prognosis? @ -No Drug Therapy requiring intensive monitoring for toxicity (Heparin, Nitro, Insulin, Cardizem)? @ -No Were any procedures done? @ -No Diagnosis/symptom? Acute, or Chronic, or Acute on Chronic? Uncomplicated (without systemic symptoms) or Complicated (systemic symptoms)? @ -Viral URI Side effects of treatment? @ -No Exacerbation, Progression, or Severe Exacerbation? @ -No Poses a threat to life or bodily function? How? (Chest pain, [place], OH, pneumonia, PE, COPD, DKA, ARF, appy, cholecystitis, CVA, Diverticulitis, Homicidal, Suicidal, threat to staff... and all critical care pts) @ -No - Lab Data Result diagrams: 07/13/24 12:02 07/13/24 13:12 Lab Results 07/13/24 07/13/24 07/13/24 Range/Units 11:54 12:02 12:02 WBC 13.46 H (4.50-10.00) 10*3/uL RBC 4.54 (4.10-5.20) 10*6/uL Hgb 13.9 (12.0-15.0) g/dL Hct 42.6 (37.2-46.3) % MCV 93.8 (80.0-97.0) fL MCH 30.6 (27.0-32.0) pg MCHC 32.6 (32.0-37.0) g/dL Plt Count 236 (140-440) 10*3/uL MPV 12.0 (9.5-12.2) fL Immature Gran % (Auto) 0.4 % Neutrophils % 74.7 % Lymphocytes % 18.2 % Monocytes % 5.9 % Eosinophils % 0.6 % Basophils % 0.2 % Immature Gran # 0.05 H (0.00-0.04) 10*3/uL Neutrophils # 10.05 H (1.80-7.70) 10*3/uL Lymphocytes # 2.45 (0.90-5.00) 10*3/uL Monocytes # 0.80 (0.20-1.00) 10*3/uL Eosinophils # 0.08 (0.04-0.35) 10*3/uL Basophils # 0.03 (0.00-0.10) 10*3/uL Sodium (137-145) mmol/L Potassium (3.5-5.1) mmol/L Chloride (98-107) mmol/L Carbon Dioxide (22-30) mmol/L Anion Gap mmol/L BUN (7-17) mg/dL Creatinine (0.52-1.04) mg/dL Est GFR (CKD-EPI)AfAm (>60 ml/min/1.73 sqM) Est GFR (CKD-EPI)NonAf (>60 ml/min/1.73 sqM) Glucose (74-99) mg/dL Calcium (8.4-10.2) mg/dL Total Bilirubin (0.2-1.3) mg/dL AST (14-36) U/L ALT (4-34) U/L Alkaline Phosphatase (38-126) U/L Total Protein (6.3-8.2) g/dL Albumin (3.5-5.0) g/dL Urine Color Urine Appearance (Clear) Urine pH (5.0-8.0) Ur Specific [place] (1.001-1.035) Urine Protein (Negative) Urine Glucose (UA) (Negative) Urine Ketones (Negative) Urine Blood (Negative) Urine Nitrite (Negative) Urine Bilirubin (Negative) Urine Urobilinogen (<2.0) mg/dL Ur Leukocyte Esterase (Negative) Urine RBC (0-5) /hpf Ur Squamous Epith Cells (0-4) /hpf Hyaline Casts (0-2) /lpf Influenza Type A (PCR) Not Detected (Not Detectd) Influenza Type B (PCR) Not Detected (Not Detectd) RSV (PCR) Not Detected (Not Detectd) SARS-CoV-2 (PCR) Not Detected (Not Detectd) Group A Strep (PCR) NOT DETECTED (Not Detectd) 07/13/24 07/13/24 Range/Units 12:02 13:12 WBC (4.50-10.00) 10*3/uL RBC (4.10-5.20) 10*6/uL Hgb (12.0-15.0) g/dL Hct (37.2-46.3) % MCV (80.0-97.0) fL MCH (27.0-32.0) pg MCHC (32.0-37.0) g/dL Plt Count (140-440) 10*3/uL MPV (9.5-12.2) fL Immature Gran % (Auto) % Neutrophils % % Lymphocytes % % Monocytes % % Eosinophils % % Basophils % % Immature Gran # (0.00-0.04) 10*3/uL Neutrophils # (1.80-7.70) 10*3/uL Lymphocytes # (0.90-5.00) 10*3/uL Monocytes # (0.20-1.00) 10*3/uL Eosinophils # (0.04-0.35) 10*3/uL Basophils # (0.00-0.10) 10*3/uL Sodium 138 (137-145) mmol/L Potassium 3.9 (3.5-5.1) mmol/L Chloride 93 L (98-107) mmol/L Carbon Dioxide 36 H (22-30) mmol/L Anion Gap 9 mmol/L BUN 17 (7-17) mg/dL Creatinine 0.54 (0.52-1.04) mg/dL Est GFR (CKD-EPI)AfAm >90 (>60 ml/min/1.73 sqM) Est GFR (CKD-EPI)NonAf >90 (>60 ml/min/1.73 sqM) Glucose 119 H (74-99) mg/dL Calcium 9.1 (8.4-10.2) mg/dL Total Bilirubin 0.6 (0.2-1.3) mg/dL AST 29 (14-36) U/L ALT 22 (4-34) U/L Alkaline Phosphatase 77 (38-126) U/L Total Protein 7.4 (6.3-8.2) g/dL Albumin 4.2 (3.5-5.0) g/dL Urine Color Colorless Urine Appearance Clear (Clear) Urine pH 6.0 (5.0-8.0) Ur Specific [place] 1.006 (1.001-1.035) Urine Protein Negative (Negative) Urine Glucose (UA) Negative (Negative) Urine Ketones Negative (Negative) Urine Blood Trace H (Negative) Urine Nitrite Negative (Negative) Urine Bilirubin Negative (Negative) Urine Urobilinogen <2.0 (<2.0) mg/dL Ur Leukocyte Esterase Negative (Negative) Urine RBC 2 (0-5) /hpf Ur Squamous Epith Cells <1 (0-4) /hpf Hyaline Casts 1 (0-2) /lpf Influenza Type A (PCR) (Not Detectd) Influenza Type B (PCR) (Not Detectd) RSV (PCR) (Not Detectd) SARS-CoV-2 (PCR) (Not Detectd) Group A Strep (PCR) (Not Detectd) Disposition Clinical Impression: Viral URI Disposition: HOME SELF-CARE Condition: Fair Is patient prescribed a controlled substance at d/c from ED?: No Referrals: Gurinder Sr MD [Primary Care Provider] - 1-2 days Time of Disposition: 14:24
[2024-07-13 12:19] LABS: Appearance,Urine Clear (Clear); Bilirubin,Urine Negative (Negative); Blood,Urine Trace (Negative); Color,Urine Colorless; Glucose,Urine (UA) Negative (Negative); Hyaline Casts,Urine 1 /lpf (0-2); Ketones,Urine Negative (Negative); Leukocyte Esterase,Urine Negative (Negative); Nitrite,Urine Negative (Negative); Protein,Urine Negative (Negative); RBC,Urine 2 /hpf (0-5); Specific Gravity,Urine 1.006 (1.001-1.035); Squamous Epithelial Cell,Urine <1 /hpf (0-4); Urobilinogen,Urine <2.0 mg/dL (<2.0)
[2024-07-13 12:20] LABS: Basophils # (A) 0.03 10*3/uL (0.00-0.10); Basophils % (A) 0.2 %; Eosinophils # (A) 0.08 10*3/uL (0.04-0.35); Eosinophils % (A) 0.6 %; HCT 42.6 % (37.2-46.3); HGB 13.9 g/dL (12.0-15.0); Lymphocytes # (A) 2.45 10*3/uL (0.90-5.00); Lymphocytes % (A) 18.2 %; MCH 30.6 pg (27.0-32.0); MCHC 32.6 g/dL (32.0-37.0); MCV 93.8 fL (80.0-97.0); Monocytes % (A) 5.9 %; Neutrophils # (A) 10.05 10*3/uL (1.80-7.70); Neutrophils % (A) 74.7 %; Platelet Count 236 10*3/uL (140-440); RBC 4.54 10*6/uL (4.10-5.20); RDW 13.2 % (11.5-14.5); WBC 13.46 10*3/uL (4.50-10.00)
[2024-07-13] MEDS: SODIUM CHLORIDE 0.9% 1,000 ML IV STA (12:54)
[2024-07-13 12:57] LABS: Influenza A Not Detected (Not Detectd); Influenza B Not Detected (Not Detectd); RSV Not Detected (Not Detectd)
[2024-07-13 13:49] LABS: ALT 22 U/L (4-34); AST 29 U/L (14-36); African American GFR (CKD) >90 (>60 ml/min/1.73 sqM); Albumin 4.2 g/dL (3.5-5.0); Alkaline Phosphatase 77 U/L (38-126); Blood Urea Nitrogen 17 mg/dL (7-17); Calcium 9.1 mg/dL (8.4-10.2); Chloride 93 mmol/L (98-107); Glucose 119 mg/dL (74-99); Non-African American GFR(CKD) >90 (>60 ml/min/1.73 sqM); Potassium 3.9 mmol/L (3.5-5.1); Sodium 138 mmol/L (137-145); Total Bilirubin 0.6 mg/dL (0.2-1.3); Total Protein 7.4 g/dL (6.3-8.2)
[2024-07-13 13:56] LABS: Anion Gap 9 mmol/L; Carbon Dioxide 36 mmol/L (22-30)
[2024-07-13 15:05] VITALS: BP 160/80; PULSE 78; TEMP 97.8
== END 2024-07-13 15:05 | disposition home or self-care (01) ==
LOC: EC 11:28
DX: J06.9 Acute upper respiratory infection, unspecified (principal); B97.89 Other viral agents as the cause of diseases classified elsewhere; I48.20 Chronic atrial fibrillation, unspecified; Z87.891 Personal history of nicotine dependence
CPT/HCPCS: 36415; 80053; 81001; 85025; 87636; 87651; 93005; 96360; 96374; 96375; 99284

== ENCOUNTER 2024-07-30 12:51 | Observation (INO) | payer MEDICARE, OTHER ==
--- NOTE | 2024-07-30 13:38 | ED ---
General Adult HPI - General Chief complaint: Chest Pain Stated complaint: chest pain Time Seen by Provider: 07/30/24 13:15 Source: patient, RN notes reviewed, old records reviewed Mode of arrival: EMS Limitations: no limitations - History of Present Illness Initial comments: 73-year-old female presenting for evaluation of left upper chest discomfort whi ch occurred yesterday evening. Symptoms resolved at the time my evaluation. Patient does have history of atrial fibrillation she is anticoagulated at baseline. She denies lower extremity pain or swelling. Denies abdominal pain but has had some mild nausea. No worsening dyspnea. Patient is oxygen dependent on 2 L. - Related Data Home Medications Medication Instructions Recorded Confirmed Apixaban [Eliquis] 5 mg PO BID 07/02/24 07/30/24 DULoxetine HCL [Cymbalta] 30 mg PO DAILY 07/02/24 07/30/24 Famotidine [Pepcid] 20 mg PO DAILY 07/02/24 07/30/24 Fluticasone/Umeclidin/Vilanter 1 puff INHALATION RT-DAILY 07/02/24 07/30/24 [Trelegy Ellipta 200-62.5-25] Metoprolol Succinate [Metoprolol 25 mg PO BID 07/02/24 07/30/24 Succinate ER] Buprenorphine HCl/Naloxone HCl 2 tab SL BID 07/03/24 07/30/24 [Buprenorphine-Nalox 2-0.5MG Tb] busPIRone HCl [Buspar] 10 mg PO TID 07/30/24 07/30/24 lisinopriL 40 mg PO DAILY 07/30/24 07/30/24 Previous Rx's Medication Instructions Recorded Bumetanide [BUMEX] 1 mg PO DAILY #30 tab 07/06/24 Allergies Allergy/AdvReac Type Severity Reaction Status Date / Time No Known Allergies Allergy Verified 07/30/24 14:55 Review of Systems ROS Statement: Those systems with pertinent positive or pertinent negative responses have been documented in the HPI. ROS Other: All systems not noted in ROS Statement are negative. Past Medical History Past Medical History: Atrial Fibrillation, Chest Pain / Angina, Heart Failure, COPD, Hyperlipidemia, Hypertension Additional Past Medical History / Comment(s): Diverticulitis History of Any Multi-Drug Resistant Organisms: None Reported Past Surgical History: Appendectomy, Section, Hysterectomy Additional Past Surgical History / Comment(s): pyloric stenosis , right eye removal Past Psychological History: Anxiety, Depression Smoking Status: Former smoker General Exam Limitations: no limitations General appearance: alert, in no apparent distress Head exam: Present: atraumatic, normocephalic Eye exam: Present: normal appearance. Absent: PERRL, EOMI ENT exam: Present: normal exam Neck exam: Present: normal inspection. Absent: tenderness, meningismus Respiratory exam: Present: decreased breath sounds. Absent: respiratory distre ss Cardiovascular Exam: Present: regular rate, irregular rhythm GI/Abdominal exam: Present: soft. Absent: distended, tenderness Extremities exam: Present: normal inspection, normal capillary refill. Absent: pedal edema Neurological exam: Present: alert, oriented X3, CN II-XII intact. Absent: motor sensory deficit Psychiatric exam: Present: normal affect, normal mood Skin exam: Present: warm, dry, intact Course Vital Signs 07/30/24 07/30/24 12:56 13:01 Temperature 98.1 F Pulse Rate 83 Respiratory 18 Rate Blood Pressure 189/99 O2 Sat by Pulse 99 Oximetry Medical Decision Making - Medical Decision Making Was pt. sent in by a medical professional or institution (, PA, HOLLOW HANDLE BENCH WORKER, urgent care, hospital, or senior care...) When possible be specific @ -No Did you speak to anyone other than the patient for history (EMS, parent, family, police, friend...)? What history was obtained from this source @ -No Did you review nursing and triage notes (agree or disagree)? Why? @ -I reviewed and agree with nursing and triage notes Were old charts reviewed (outside hosp., previous admission, EMS record, old EKG, old radiological studies, urgent care reports/EKG's, senior care records)? Report findings @ -No old charts were reviewed Differential Chest Pain: Stable Angina, Unstable Angina, STEMI, NSTEMI Aortic Dissection, Pneumothorax, Musculoskeletal, Esophageal Spasm GERD, Cholecystitis, Pancreatitis, Zoster, t his is not meant to be an all-inclusive list. EKG interpreted by me (3pts min.). @EKG: Atrial fibrillation ventricular rate of 93, QRS duration 88, QTc [address] segment elevation. X-rays interpreted by me (1pt min.). @Chest x-ray negative for acute cardiopulmonary findings CT interpreted by me (1pt min.). @ -None done U/S interpreted by me (1pt. min.). @ -None done What testing was considered but not performed or refused? (CT, X-rays, U/S, labs)? Why? @ -None What meds were considered but not given or refused? Why? @ -None Did you discuss the management of the patient with other professionals (professionals i.e. ., PA, HOLLOW HANDLE BENCH WORKER, lab, RT, psych nurse, social media analyst, sales management intern, teacher, licensed loan officer, case work aide)? Give summary @ -[Dr. Sr Was smoking cessation discussed for >3mins.? @ -No Was critical care preformed (if so, how long)? @ -No Were there social determinants of health that impacted care today? How? (Homelessness, low income, unemployed, alcoholism, drug addiction, transportation, low edu. Level, literacy, decrease access to med. care, detention, rehab)? @ -No Was there de-escalation of care discussed even if they declined (Discuss DNR or withdrawal of care, Hospice)? DNR status @ -No What co-morbidities impacted this encounter? (DM, HTN, Smoking, COPD, CAD, Canc er, CVA, ARF, Chemo, Hep., AIDS, mental health diagnosis, sleep apnea, morbid obesity)? @ -Atrial fibrillation, hypertension, COPD Was patient admitted / discharged? Hospital course, mention meds given and route, prescriptions, significant lab abnormalities, going to OR and other pertinent info. @ -73-year-old presenting for evaluation of chest discomfort, nausea. Patient denies a prior history of CAD. She does have history of atrial fibrillation and high blood pressure. EKG is atrial fibrillation, rate controlled without ST segment elevation. Chest x-ray is negative for consolidated pneumonia or pneumothorax. Patient has normal CBC, normal CMP, negative initial troponin. Patient will be observed for serial cardiac enzymes, telemetry and cardiology consultation. Undiagnosed new problem with uncertain prognosis? @ -No Drug Therapy requiring intensive monitoring for toxicity (Heparin, Nitro, Insulin, Cardizem)? @ -No Were any procedures done? @ -No Diagnosis/symptom? @Chest pain rule out Acute, or Chronic, or Acute on Chronic? @ -Acute Uncomplicated (without systemic symptoms) or Complicated (systemic symptoms)? @ -Default Side effects of treatment? @ -No Exacerbation, Progression, or Severe Exacerbation? @ -No Poses a threat to life or bodily function? How? (Chest pain, [place], [place], pneumonia, PE, COPD, DKA, ARF, appy, cholecystitis, CVA, Diverticulitis, Homicidal, Bills icidal, threat to staff... and all critical care pts) @Yes, chest pain, ACS - Lab Data Result diagrams: 07/30/24 13:07 07/30/24 16:02 Lab Results 07/30/24 07/30/24 07/30/24 Range/Units 13:07 13:07 16:02 WBC 11.72 H (4.50-10.00) 10*3/uL RBC 4.04 L (4.10-5.20) 10*6/uL Hgb 12.3 (12.0-15.0) g/dL Hct 37.7 (37.2-46.3) % MCV 93.3 (80.0-97.0) fL MCH 30.4 (27.0-32.0) pg MCHC 32.6 (32.0-37.0) g/dL Plt Count 232 (140-440) 10*3/uL MPV 12.0 (9.5-12.2) fL Immature Gran % (Auto) 0.3 % Neutrophils % 67.6 % Lymphocytes % 24.7 % Monocytes % 6.3 % Eosinophils % 0.9 % Basophils % 0.2 % Immature Gran # 0.03 (0.00-0.04) 10*3/uL Neutrophils # 7.92 H (1.80-7.70) 10*3/uL Lymphocytes # 2.90 (0.90-5.00) 10*3/uL Monocytes # 0.74 (0.20-1.00) 10*3/uL Eosinophils # 0.11 (0.04-0.35) 10*3/uL Basophils # 0.02 (0.00-0.10) 10*3/uL PT 11.7 (10.0-12.5) sec INR 1.1 (<1.2) APTT 24.9 (22.0-30.0) sec Sodium (137-145) mmol/L Potassium (3.5-5.1) mmol/L Chloride (98-107) mmol/L Carbon Dioxide (22-30) mmol/L Anion Gap mmol/L BUN (7-17) mg/dL Creatinine (0.52-1.04) mg/dL Est GFR (CKD-EPI)AfAm (>60 ml/min/1.73 sqM) Est GFR (CKD-EPI)NonAf (>60 ml/min/1.73 sqM) Glucose (74-99) mg/dL Calcium (8.4-10.2) mg/dL Magnesium (1.6-2.3) mg/dL Total Bilirubin (0.2-1.3) mg/dL AST (14-36) U/L ALT (4-34) U/L Alkaline Phosphatase (38-126) U/L Troponin I <0.012 (0.000-0.034) ng/mL NT-Pro-B Natriuret Pep pg/mL Total Protein (6.3-8.2) g/dL Albumin (3.5-5.0) g/dL 07/30/25 Range/Units 16:02 WBC (4.50-10.00) 10*3/uL RBC (4.10-5.20) 10*6/uL Hgb (12.0-15.0) g/dL Hct (37.2-46.3) % MCV (80.0-97.0) fL MCH (27.0-32.0) pg MCHC (32.0-37.0) g/dL Plt Count (140-440) 10*3/uL MPV (9.5-12.2) fL Immature Gran % (Auto) % Neutrophils % % Lymphocytes % % Monocytes % % Eosinophils % % Basophils % % Immature Gran # (0.00-0.04) 10*3/uL Neutrophils # (1.80-7.70) 10*3/uL Lymphocytes # (0.90-5.00) 10*3/uL Monocytes # (0.20-1.00) 10*3/uL Eosinophils # (0.04-0.35) 10*3/uL Basophils # (0.00-0.10) 10*3/uL PT (10.0-12.5) sec INR (<1.2) APTT (22.0-30.0) sec Sodium 137 (137-145) mmol/L Potassium 4.7 (3.5-5.1) mmol/L Chloride 97 L (98-107) mmol/L Carbon Dioxide 35 H (22-30) mmol/L Anion Gap 5 mmol/L BUN 19 H (7-17) mg/dL Creatinine 0.53 (0.52-1.04) mg/dL Est GFR (CKD-EPI)AfAm >90 (>60 ml/min/1.73 sqM) Est GFR (CKD-EPI)NonAf >90 (>60 ml/min/1.73 sqM) Glucose 101 H (74-99) mg/dL Calcium 9.2 (8.4-10.2) mg/dL Magnesium 2.0 (1.6-2.3) mg/dL Total Bilirubin 0.7 (0.2-1.3) mg/dL AST 30 (14-36) U/L ALT 23 (4-34) U/L Alkaline Phosphatase 60 (38-126) U/L Troponin I (0.000-0.034) ng/mL NT-Pro-B Natriuret Pep 1150 pg/mL Total Protein 6.9 (6.3-8.2) g/dL Albumin 3.8 (3.5-5.0) g/dL Disposition Clinical Impression: Chest pain Disposition: ADMITTED IP TO THIS HOSP Condition: Stable Is patient prescribed a controlled substance at d/c from ED?: No Referrals: Gurinder Sr MD [Primary Care Provider] - 1-2 days Time of Disposition: 16:54
[2024-07-30 15:42] LABS: Basophils # (A) 0.02 10*3/uL (0.00-0.10); Basophils % (A) 0.2 %; Eosinophils # (A) 0.11 10*3/uL (0.04-0.35); Eosinophils % (A) 0.9 %; HCT 37.7 % (37.2-46.3); HGB 12.3 g/dL (12.0-15.0); Lymphocytes % (A) 24.7 %; MCH 30.4 pg (27.0-32.0); MCHC 32.6 g/dL (32.0-37.0); MCV 93.3 fL (80.0-97.0); Monocytes # (A) 0.74 10*3/uL (0.20-1.00); Monocytes % (A) 6.3 %; Neutrophils # (A) 7.92 10*3/uL (1.80-7.70); Neutrophils % (A) 67.6 %; Platelet Count 232 10*3/uL (140-440); RBC 4.04 10*6/uL (4.10-5.20); RDW 13.3 % (11.5-14.5); WBC 11.72 10*3/uL (4.50-10.00)
[2024-07-30 15:53] LABS: INR 1.1 (<1.2); Partial Thromboplastin Time 24.9 sec (22.0-30.0); Prothrombin Time 11.7 sec (10.0-12.5)
--- NOTE | 2024-07-30 16:12 | XR ---
EXAMINATION TYPE: XR chest 1V portable DATE OF EXAM: 07/30/2024 3:55 PM COMPARISON: Chest radiographs from TECHNIQUE: XR chest 1V portable Portable AP radiograph of the chest. CLINICAL INDICATION:Female, 73 years old with history of chest pain; FINDINGS: Lungs/Pleura: There is no evidence of pleural effusion, focal consolidation, or pneumothorax. Hyperi nflation. Pulmonary vascularity: Unremarkable. Heart/mediastinum: Cardiomediastinal silhouette is enlarged and stable. Atherosclerotic calcificatio ns are seen in the aorta. Musculoskeletal: No acute osseous pathology. IMPRESSION: 1. No acute cardiopulmonary disease process. 2. COPD changes. [facility], , 07/30/2024 4:10 PM
[2024-07-30 16:24] LABS: African American GFR (CKD) >90 (>60 ml/min/1.73 sqM); Anion Gap 5 mmol/L; Blood Urea Nitrogen 19 mg/dL (7-17); Carbon Dioxide 35 mmol/L (22-30); Chloride 97 mmol/L (98-107); Glucose 101 mg/dL (74-99); Non-African American GFR(CKD) >90 (>60 ml/min/1.73 sqM); Potassium 4.7 mmol/L (3.5-5.1); Sodium 137 mmol/L (137-145)
[2024-07-30 16:25] LABS: ALT 23 U/L (4-34); AST 30 U/L (14-36); Albumin 3.8 g/dL (3.5-5.0); Alkaline Phosphatase 60 U/L (38-126); Calcium 9.2 mg/dL (8.4-10.2); Total Bilirubin 0.7 mg/dL (0.2-1.3); Total Protein 6.9 g/dL (6.3-8.2)
[2024-07-30 16:33] LABS: NT-Pro-B-Type Natriuretic Pept 1150 pg/mL
[2024-07-30] MEDS ORDERED: NALOXONE 0.4 MG/ML 1 ML VIAL IV PRN (16:50)
[2024-07-30] MEDS: ASPIRIN 325 MG TAB PO STA (18:10)
--- NOTE | 2024-07-31 10:30 | P.CRDCN ---
History of Present Illness Consult date: 07/31/24 History of present illness: HPI: The patient is a 73-year-old female with a history of heart failure with preserved ejection fraction (HEF-PEF), chronic hypoxia on 2 liters of oxygen, COPD, obesity, and hypertension. She presented due to substantial chest pressure that has been on and off for the last 2 to 3 days and worsening. This pressure is not related to activity, rest, or changes in position. She reports being in atrial fibrillation for the last 2 to 3 years without having undergone any ablation procedures. One month ago, she was hospitalized due to elevated blood pressure, which led to the initiation of lisinopril. She was also noticed to be in mild HFpEF exacerbation for which her Lasix was changed to Bumex. Pertinent Vitals: - BP: 150/79 mmHg - HR: 81 bpm Pertinent cardiac Labs: - Hgb: 12, WBC: 11, Platelets: 232, BUN: 19, Creatinine: 0.5 - Troponin x3: Negative - BNP: 1150, last admission in 06/2024 - 3000. Cardiac home meds: Bumetanide 1 mg daily, Lisinopril 40 mg daily, Metoprolol 25 mg BID, Eliquis 5 mg BID Pertinent cardiac testing: - EK07/2024: Atrial fibrillation, HR 93 bpm, normal axis - Echo: 06/2024: EF 55%, mild LVH, no obvious RWMA, mild RV dilatation, moderate pulmonary hypertension, RVSP 52 mmHg REVIEW OF SYSTEMS: 14 point review of systems is negative except what is mentioned above in HPI. PHYSICAL EXAMINATION: Neck: Brisk carotid upstroke, no jugular venous distention. Lungs: Clear to auscultation. Heart: Irregularly irregular S1-S2, no murmur or rub. Abdomen: Soft, nontender, positive bowel sounds. Extremities: No edema, intact distal pulses. Neuro: Alert, oriented, no focal deficits. Detailed neuro exam was not performed. ASSESSMENT: # Atypical chest pain, ruled out of acute coronary syndrome # Persistent atrial fibrillation, rate control. Apparently first diagnosed in 2022 as per patient. # Essential hypertension, borderline elevated # HEF-PEF, currently euvolemic # COPD with chronic hypoxia on 2 liters of oxygen # Obesity PLAN: # Resume home medication and add Farxiga 10 mg and Aldactone 12.5 g daily Repeat BMP tomorrow, lipids HbA1c, TSH # No need to repeat echocardiogram # Obtain Lexiscan nuclear stress test on Friday # Evaluate rhythm control for atrial fibrillation on an outpatient basis. Past Medical History Past Medical History: Atrial Fibrillation, Chest Pain / Angina, Heart Failure, COPD, Hyperlipidemia, Hypertension Additional Past Medical History / Comment(s): Diverticulitis History of Any Multi-Drug Resistant Organisms: None Reported Past Surgical History: Appendectomy, Section, Hysterectomy Additional Past Surgical History / Comment(s): pyloric stenosis , right eye removal Past Psychological History: Anxiety, Depression Smoking Status: Former smoker Medications and Allergies Home Medications Medication Instructions Recorded Confirmed Type Apixaban [Eliquis] 5 mg PO BID 07/02/24 07/30/24 History DULoxetine HCL [Cymbalta] 30 mg PO DAILY 07/02/24 07/30/24 History Famotidine [Pepcid] 20 mg PO DAILY 07/02/24 07/30/24 History Fluticasone/Umeclidin/Vilanter 1 puff INHALATION RT-DAILY 07/02/24 07/30/24 His tory [Trelegy Ellipta 200-62.5-25] Metoprolol Succinate [Metoprolol 25 mg PO BID 07/02/24 07/30/24 History Succinate ER] Buprenorphine HCl/Naloxone HCl 2 tab SL BID 07/03/24 07/30/24 History [Buprenorphine-Nalox 2-0.5MG Tb] Bumetanide [BUMEX] 1 mg PO DAILY #30 tab 07/06/24 07/30/24 Rx busPIRone HCl [Buspar] 10 mg PO TID 07/30/24 07/30/24 History lisinopriL 40 mg PO DAILY 07/30/24 07/30/24 History Allergies Allergy/AdvReac Type Severity Reaction Status Date / Time No Known Allergies Allergy Verified 07/30/24 14:55 Physical Exam Vitals: Vital Signs Temp Pulse Pulse Resp BP BP Pulse Ox 07/31/24 07:45 97.8 F 76 17 148/85 99 07/31/24 05:06 97 18 153/67 98 07/31/24 02:47 67 16 98 07/30/24 21:20 98.4 F 81 16 131/69 96 07/30/24 17:06 81 18 150/79 97 07/30/24 13:01 98.1 F 07/30/24 12:56 83 18 189/99 99 Intake and Output 07/30/24 07/31/24 07/31/24 22:59 06:59 14:59 Other: Weight 104.326 kg Results 07/30/24 13:07 07/30/24 16:02 Cardiac Enzymes 07/30/24 07/30/24 07/30/24 Range/Units 16:02 16:02 19:40 AST 30 (14-36) U/L Troponin I <0.012 <0.012 (0.000-0.034) ng/mL 07/30/24 Range/Units 22:12 AST (14-36) U/L Troponin I <0.012 (0.000-0.034) ng/mL Coagulation 07/30/24 Range/Units 13:07 PT 11.7 (10.0-12.5) sec APTT 24.9 (22.0-30.0) sec CBC 07/30/24 Range/Units 13:07 WBC 11.72 H (4.50-10.00) 10*3/uL RBC 4.04 L (4.10-5.20) 10*6/uL Hgb 12.3 (12.0-15.0) g/dL Hct 37.7 (37.2-46.3) % Plt Count 232 (140-440) 10*3/uL Comprehensive Metabolic Panel 07/30/24 Range/Units 16:02 Sodium 137 (137-145) mmol/L Potassium 4.7 (3.5-5.1) mmol/L Chloride 97 L (98-107) mmol/L Carbon Dioxide 35 H (22-30) mmol/L BUN 19 H (7-17) mg/dL Creatinine 0.53 (0.52-1.04) mg/dL Glucose 101 H (74-99) mg/dL Calcium 9.2 (8.4-10.2) mg/dL AST 30 (14-36) U/L ALT 23 (4-34) U/L Alkaline Phosphatase 60 (38-126) U/L Total Protein 6.9 (6.3-8.2) g/dL Albumin 3.8 (3.5-5.0) g/dL Current Medications Generic Name Dose Route Start Last Admin Trade Name Freq PRN Reason Stop Dose Admin Acetaminophen 650 mg 07/30/24 16:50 Acetaminophen Tab 325 Mg Tab PO Q6HR PRN Mild Pain or Fever > 100.5 Aminophylline 100 mg 07/31/24 10:26 Aminophylline 500 Mg/20 Ml Vial IV 07/31/24 14:27 ONCE PRN Patient Response Amlodipine Besylate 2.5 mg 07/31/24 10:30 Amlodipine 5 Mg Tab PO DAILY [facility] Apixaban 5 mg 07/31/24 10:30 Apixaban 5 Mg Tab PO BID [facility] Protocol Bumetanide 1 mg 07/31/24 10:30 Bumetanide 1 Mg Tab PO DAILY [facility] Caffeine Citrate 60 mg 07/31/24 10:26 Caffeine Citrate 60 Mg/3 Ml Vial IV 07/31/24 14:27 ONCE PRN Patient Response Dapagliflozin 10 mg 07/31/24 10:30 Dapagliflozin Propanediol 10 Mg Tablet PO DAILY [facility] Lisinopril 40 mg 07/31/24 10:30 Lisinopril 20 Mg Tab PO DAILY [facility] Metoprolol Tartrate 25 mg 07/31/24 10:30 Metoprolol Tartrate 25 Mg Tab PO BID [facility] Naloxone HCl 0.2 mg 07/30/24 16:50 Naloxone 0.4 Mg/Ml 1 Ml Vial IV Q2M PRN Opioid Reversal Regadenoson 0.4 mg 07/31/24 10:26 Regadenoson 0.4 Mg/5 Ml Syringe IV 07/31/24 14:27 ONCE PRN Per Protocol Spironolactone 12.5 mg 07/31/24 10:30 Spironolactone 25 Mg Tab PO DAILY [facility] Intake and Output 07/30/24 07/31/24 07/31/24 22:59 06:59 14:59 Other: Weight 104.326 kg Patient Weight 08/01/24 06:59 Weight 104.326 kg 07/30/24 13:07 07/30/24 16:02
[2024-07-31] MEDS: APIXABAN 5 MG TAB PO SCH (11:16)
[2024-07-31] MEDS: lisinopriL 20 MG TAB PO SCH (11:16)
[2024-07-31] MEDS: ACETAMINOPHEN TAB 325 MG TAB PO PRN (11:16)
[2024-07-31] MEDS: METOPROLOL TARTRATE 25 MG TAB PO SCH (11:16)
[2024-07-31] MEDS: BUMETANIDE 1 MG TAB PO SCH (11:17)
[2024-07-31] MEDS: SPIRONOLACTONE 25 MG TAB PO SCH (11:17)
[2024-07-31] MEDS: DAPAGLIFLOZIN PROPANEDIOL 10 MG TABLET PO SCH (11:17)
[2024-07-31] MEDS: amLODIPine 2.5 MG TAB PO SCH (11:17)
[2024-07-31] MEDS: busPIRone HCl 10 MG TAB PO SCH (17:43)
[2024-07-31] MEDS: BUPRENORPHINE NALOX SUBLINGUAL SCH (20:28)
[2024-07-31] MEDS ORDERED: APIXABAN 5 MG TAB PO SCH (21:00)
[2024-07-31] MEDS ORDERED: METOPROLOL SUCCINATE (ER) 25 MG TAB.ER.24H PO SCH (21:00)
[2024-08-01 07:06] LABS: Chol/HDL Ratio 3.99 Ratio; LDL Cholesterol,Calculated 129.7 mg/dL (0.0-131.0); VLDL Calculation 14.88 mg/dL (5.00-40.00)
[2024-08-01 07:47] LABS: African American GFR (CKD) >90 (>60 ml/min/1.73 sqM); Anion Gap 5 mmol/L; Blood Urea Nitrogen 19 mg/dL (7-17); Calcium 9.4 mg/dL (8.4-10.2); Carbon Dioxide 37 mmol/L (22-30); Chloride 99 mmol/L (98-107); Glucose 117 mg/dL (74-99); Non-African American GFR(CKD) 89 (>60 ml/min/1.73 sqM); Potassium 5.1 mmol/L (3.5-5.1); Sodium 141 mmol/L (137-145)
[2024-08-01] MEDS ORDERED: NON FORMULARY DRUG (Lisinopril [Lisinopril] 40 MG Tablet) PO SCH (09:00)
[2024-08-01] MEDS ORDERED: BUMETANIDE 1 MG TAB PO SCH (09:00)
[2024-08-01] MEDS: FAMOTIDINE 20 MG TAB PO SCH (09:47)
[2024-08-01] MEDS: DULoxetine HCL 30 MG CAPSULE.DR PO SCH (09:47)
--- NOTE | 2024-08-01 12:31 | P.PN ---
Subjective Progress Note Date: 08/01/24 HPI: The patient is a 73-year-old female with a history of heart failure with preserved ejection fraction (HEF-PEF), chronic hypoxia on 2 liters of oxygen, COPD, obesity, and hypertension. She presented due to substantial chest pressure that has been on and off for the last 2 to 3 days and worsening. This pressure is not related to activity, rest, or changes in position. She reports being in atrial fibrillation for the last 2 to 3 years without having undergone any ablation procedures. One month ago, she was hospitalized due to elevated blood pressure, which led to the initiation of lisinopril. She was also noticed to be in mild HFpEF exacerbation for which her Lasix was changed to Bumex. Pertinent Vitals: - BP: 150/79 mmHg - HR: 81 bpm Pertinent cardiac Labs: - Hgb: 12, WBC: 11, Platelets: 232, BUN: 19, Creatinine: 0.5 - Troponin x3: Negative - BNP: 1150, last admission in 06/2024 - 3000. Cardiac home meds: Bumetanide 1 mg daily, Lisinopril 40 mg daily, Metoprolol 25 mg BID, Eliquis 5 mg BID Pertinent cardiac testing: - EK07/2024: Atrial fibrillation, HR 93 bpm, normal axis - Echo: 06/2024: EF 55%, mild LVH, no obvious RWMA, mild RV dilatation, moderate pulmonary hypertension, RVSP 52 mmHg Progress note Seen and examined at bedside this a.m. reports feeling better. Denies any chest pain chest pressure at this time BUN 19, creatinine 0.6, tolerated the addition of Aldactone Farxiga yesterday, LDL 129, TSH 1.7, TG 74, A1c 6.0, NT-proBNP 1150 PHYSICAL EXAMINATION: Neck: Brisk carotid upstroke, no jugular venous distention. Lungs: Clear to auscultation. Heart: Irregularly irregular S1-S2, no murmur or rub. Abdomen: Soft, nontender, positive bowel sounds. Extremities: No edema, intact distal pulses. Neuro: Alert, oriented, no focal deficits. Detailed neuro exam was not performed. ASSESSMENT: # Atypical chest pain, ruled out of acute coronary syndrome # Persistent atrial fibrillation, rate control. Apparently first diagnosed in 2022 as per patient. # Essential hypertension, borderline elevated # HEF-PEF, currently euvolemic # COPD with chronic hypoxia on 2 liters of oxygen # Moderate pulmonary hypertension # Prediabetes # Obesity PLAN: # Resume home medication and add Farxiga 10 mg and Aldactone 12.5 mg daily # No need to repeat echocardiogram # Obtain Lexiscan nuclear stress test on Friday # Evaluate rhythm control for atrial fibrillation on an outpatient basis. With medical or electrical cardioversion and possible ablation procedure. Objective - Vital Signs Vital signs: Vital Signs Temp 98.1 F 08/01/24 07:00 Pulse 75 08/01/24 07:00 Resp 16 08/01/24 07:00 BP 139/73 08/01/24 07:00 Pulse Ox 98 08/01/24 07:00 FiO2 Intake & Output 07/31/24 08/01/24 08/01/24 18:59 06:59 18:59 Intake Total 240 Balance 240 Weight 104.326 kg Intake: Oral 240 Other: Voiding Method Toilet # Voids 4 3 # Bowel Movements 2 - Labs CBC & Chem 7: 07/30/24 13:07 08/01/24 07:09 Labs: Abnormal Lab Results - Last 24 Hours (Table) 08/01/24 Range/Units 07:09 Carbon Dioxide 37 H (22-30) mmol/L BUN 19 H (7-17) mg/dL Glucose 117 H (74-99) mg/dL
[2024-08-01] MEDS: SODIUM ZIRCONIUM CYCLOSILICATE 10 GM PACKET PO ONE (14:27)
[2024-08-01] MEDS: ATORVASTATIN 40 MG TAB PO SCH (21:21)
--- NOTE | 2024-08-02 05:26 | PN ---
PROGRESS NOTE DATE OF SERVICE: 07/31/2024 CHIEF COMPLAINT: Chest pain. HISTORY OF PRESENT ILLNESS: This lady is doing well, and she has not had any further chest pain. Enzymes have been normal. She is being seen by Cardiology, and studies are planned for Friday. PHYSICAL EXAMINATION: CHEST: Clear. CARDIAC: Unremarkable. ABDOMEN: Soft and nontender. GENERAL: She is comfortable and not short of breath or in pain. IMPRESSION: 1. Chest pain. 2. History of congestive heart failure. PLAN: Continue to monitor her over the weekend with further studies planned for Friday. MMODL / IJN: [id number] /
--- NOTE | 2024-08-02 05:26 | PN ---
PROGRESS NOTE DATE OF SERVICE: 08/01/2024 CHIEF COMPLAINT: Chest pain. HISTORY OF PRESENT ILLNESS: This lady is doing fairly well. She has had no further chest pain or shortness of breath. She is going for further studies tomorrow. PHYSICAL EXAM: Her chest is quite clear. Cardiac: Normal. Abdomen: Soft, nontender. IMPRESSION: 1. Chest pain. 2. Chronic obstructive pulmonary disease. 3. Congestive heart failure. PLAN: Add Lipitor 40 mg to her program. MMODL / IJN: [id number] /
--- NOTE | 2024-08-02 05:26 | HP ---
HISTORY AND PHYSICAL CHIEF COMPLAINT: Chest pain. HISTORY OF PRESENT ILLNESS: This is another admission for this 73-year-old white female with a history of cardiac disease with congestive heart failure and atrial fibrillation. She also has hypertension and COPD. She presented to the emergency room with chest pain. Enzymes were normal. She is admitted for observation and further evaluation. REVIEW OF SYSTEMS: She had slight shortness of breath but no diaphoresis. She had no dizziness, syncope, nausea, vomiting, etc. Past medical history, family history, personal and social histories reveal that she is not allergic to any medication. MEDICATIONS: She has been on: 1. Duloxetine. 2. Pepcid. 3. Bumetanide. 4. Buprenorphine. 5. Eliquis. 6. Metoprolol. 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 PHYSICAL EXAMINATION: VITAL SIGNS: Blood pressure is 189/99 with a pulse of 87, respirations of 18. GENERAL: She appeared to be in no acute distress. SKIN: Dry. HEAD, EYES, EARS, NOSE, AND THROAT: Normal except for the artificial eye. NECK: Neck veins are not distended. CHEST: Clear. CARDIAC: Normal except for atrial fibrillation. ABDOMEN: Soft and nontender. EXTREMITIES: Normal. NEUROLOGICAL: She is intact. IMPRESSION: She is admitted to the hospital with diagnoses of: 1. Chest pain. 2. History of congestive heart failure. 3. Atrial fibrillation. PLAN: 1. Bedrest. 2. IV fluids. 3. Serial EKGs and enzymes. 4. Consult Cardiology. MMODL / IJN: [id number] /
[2024-08-02] MEDS ORDERED: CAFFEINE CITRATE 60 MG/3 ML VIAL IV PRN (07:00)
[2024-08-02] MEDS ORDERED: REGADENOSON 0.4 MG/5 ML SYRINGE IV PRN (07:00)
[2024-08-02] MEDS ORDERED: AMINOPHYLLINE 500 MG/20 ML VIAL IV PRN (07:00)
[2024-08-02] MEDS ORDERED: DOBUTamine DRIP for NUC MED 500 MG in DEXTROSE/WATER 1 250ML.BAG IV PRN (10:02)
--- NOTE | 2024-08-02 14:44 | P.PN ---
Subjective Progress Note Date: 08/02/24 HPI: The patient is a 73-year-old female with a history of heart failure with preserved ejection fraction (HEF-PEF), chronic hypoxia on 2 liters of oxygen, COPD, obesity, and hypertension. She presented due to substantial chest pressure that has been on and off for the last 2 to 3 days and worsening. This pressure is not related to activity, rest, or changes in position. She reports being in atrial fibrillation for the last 2 to 3 years without having undergone any ablation procedures. One month ago, she was hospitalized due to elevated blood pressure, which led to the initiation of lisinopril. She was also noticed to be in mild HFpEF exacerbation for which her Lasix was changed to Bumex. Pertinent Vitals: - BP: 150/79 mmHg - HR: 81 bpm Pertinent cardiac Labs: - Hgb: 12, WBC: 11, Platelets: 232, BUN: 19, Creatinine: 0.5 - Troponin x3: Negative - BNP: 1150, last admission in 06/2024 - 3000. Cardiac home meds: Bumetanide 1 mg daily, Lisinopril 40 mg daily, Metoprolol 25 mg BID, Eliquis 5 mg BID Pertinent cardiac testing: - EK07/2024: Atrial fibrillation, HR 93 bpm, normal axis - Echo: 06/2024: EF 55%, mild LVH, no obvious RWMA, mild RV dilatation, moderate pulmonary hypertension, RVSP 52 mmHg Progress note Seen and examined at bedside this a.m. reports feeling better. Denies any chest pain chest pressure at this time BUN 19, creatinine 0.6, tolerated the addition of Aldactone Farxiga yesterday, LDL 129, TSH 1.7, TG 74, A1c 6.0, NT-proBNP 1150 08/02 Patient seen and examined. BUN 19, creatinine 0.63. A1c 6.0. Triglycerides 74, cholesterol 193, LDL 129. Blood pressure 145/99, heart rate 69, pulse ox 96% on room air. PHYSICAL EXAMINATION: Neck: Brisk carotid upstroke, no jugular venous distention. Lungs: Clear to auscultation. Heart: Irregularly irregular S1-S2, no murmur or rub. Abdomen: Soft, nontender, positive bowel sounds. Extremities: No edema, intact distal pulses. Neuro: Alert, oriented, no focal deficits. Detailed neuro exam was not performed. ASSESSMENT: # Atypical chest pain, ruled out of acute coronary syndrome # Persistent atrial fibrillation, rate control. Apparently first diagnosed in 2022 as per patient. # Essential hypertension, borderline elevated # HEF-PEF, currently euvolemic # COPD with chronic hypoxia on 2 liters of oxygen # Moderate pulmonary hypertension # Prediabetes # Obesity PLAN: # Resume home medication and add Farxiga 10 mg and Aldactone 12.5 mg daily # Evaluate rhythm control for atrial fibrillation on an outpatient basis. With medical or electrical cardioversion and possible ablation procedure. If stress test is unremarkable, patient is cleared for discharge from cardiology and may follow-up in the office in 1 to 2 weeks. Nurse practitioner note has been reviewed, I agree with documented findings and plan of care. Patient was seen and examined. Objective - Vital Signs Vital signs: Vital Signs Temp 97.9 F 08/02/24 07:00 Pulse 69 08/02/24 07:00 Resp 15 08/02/24 07:00 BP 145/99 08/02/24 07:00 Pulse Ox 96 08/02/24 07:00 FiO2 Intake & Output 08/01/24 08/02/24 08/02/24 18:59 06:59 18:59 Intake Total 480 Balance 480 Intake: Oral 480 Other: Voiding Method Toilet Toilet # Voids 1 2 - Labs CBC & Chem 7: 07/30/24 13:07 08/01/24 07:09
--- NOTE | 2024-08-02 15:47 | CA ---
Dobutamine Stress Echocardiogram Report Carolina Rowe Age: 73 Gender: F : 1950 Exam Date: 08/02/2024 13:21 Exam Location: [facility] Ordering Physician: Aneta Simon Referring Physician: ANETA SIMON,, Fitter Tacker: Vikki Martinez RDCS Technologist: Ht (in): 64 Wt (lb): 230 Procedure CPT: Indication: Chest Pain ICD-9 Codes: Rhythm: Patient History: CHEST PAIN, PALPITATIONS, HTN, HYPERCHOLESTEROLEMIA, FAMILY HX OF HEART DISEASE, PRIOR SMOKER, COPD Cardiac Medications: SEE CHART,,,,, Medications in past 24 hours: Contrast: Definity Total Dose (mL): 2 Stress Results Protocol: Dobutamine Peak Dose (???g/kg/min): 30 Duration (min:sec): Atropine:(mg) Target HR: 124 Double Product: 00805 Resting HR: 78 Resting BP: 128 / 69 Peak HR: 179 Peak BP: 178 / 62 Max Predicted HR: 146 123 % Max Predicted HR Stress Summary: BP Response: Reason for Termination: Target HR Cardiac Symptoms: CHEST PAIN ECG Analysis Resting EKG: Stress EKG: Arrhythmia: Echo Analysis Base Echo Analysis: Low Echo Anaylsis: Peak Echo Analysis: Recovery Echo: MEASUREMENTS (Male/Female) Normal Values CONCLUSIONS Patient underwent dobutamine stress echo with infusion of dobutamine into Stage 3 for a total of 8 minutes and 25 seconds. Patient's maximum heart rate was 179 which represented 122% age- predicted maximum heart rate. Stress EKG portion: At baseline patient's EKG showed A-fib with controlled ventricular rate with normal axis, minimal 0.[address] depressions V4 through V6.. At peak dobutamine infusion, EKG showed accentuation of baseline EKG abnormalities with ST depressions in the inferior and lateral leads which can be nonspecific with dobutamine infusion. Stress echo portion: 2-D echocardiogram was performed in the parasternal long, personal short, apical 2 and apical four-chamber views at rest, low-dose, peak infusion and in recovery. At baseline, echocardiogram showed left ventricular ejection fraction 55% without wall motion abnormalities. With peak infusion, echocardiogram shows improvement in left ventricular ejection fraction, increase contractility, decrease in left ventricular end systolic dimension without wall motion abnormalities consistent with a normal response to dobutamine. Conclusions: 1. Nonspecific stress EKG portion secondary baseline EKG abnormalities 2. Normal stress echo portion without inducible ischemia Dr. Sebastien Adair DO (Electronically Signed) Final Date: 02 August 2024 15:46
--- NOTE | 2024-08-03 14:13 | PN ---
PROGRESS NOTE CHIEF COMPLAINT: Chest pain and CHF. HISTORY OF PRESENT ILLNESS: This lady is feeling about the same. She is not having any further pain. She is going for further cardiac studies today. PHYSICAL EXAMINATION: CHEST: Clear. CARDIAC: Normal. ABDOMEN: Soft, nontender. VITAL SIGNS: Normal. IMPRESSION: 1. Chest pain. 2. Chronic obstructive pulmonary disease. PLAN: Reassess after her studies today and probably home soon. MMODL / IJN: [id number] /
--- NOTE | 2024-08-03 14:37 | P.PN ---
Subjective Progress Note Date: 08/03/24 HPI: The patient is a 73-year-old female with a history of heart failure with preserved ejection fraction (HEF-PEF), chronic hypoxia on 2 liters of oxygen, COPD, obesity, and hypertension. She presented due to substantial chest pressure that has been on and off for the last 2 to 3 days and worsening. This pressure is not related to activity, rest, or changes in position. She reports being in atrial fibrillation for the last 2 to 3 years without having undergone any ablation procedures. One month ago, she was hospitalized due to elevated blood pressure, which led to the initiation of lisinopril. She was also noticed to be in mild HFpEF exacerbation for which her Lasix was changed to Bumex. Pertinent Vitals: - BP: 150/79 mmHg - HR: 81 bpm Pertinent cardiac Labs: - Hgb: 12, WBC: 11, Platelets: 232, BUN: 19, Creatinine: 0.5 - Troponin x3: Negative - BNP: 1150, last admission in 06/2024 - 3000. Cardiac home meds: Bumetanide 1 mg daily, Lisinopril 40 mg daily, Metoprolol 25 mg BID, Eliquis 5 mg BID Pertinent cardiac testing: - EK07/2024: Atrial fibrillation, HR 93 bpm, normal axis - Echo: 06/2024: EF 55%, mild LVH, no obvious RWMA, mild RV dilatation, moderate pulmonary hypertension, RVSP 52 mmHg Progress note Seen and examined at bedside this a.m. reports feeling better. Denies any chest pain chest pressure at this time BUN 19, creatinine 0.6, tolerated the addition of Aldactone Farxiga yesterday, LDL 129, TSH 1.7, TG 74, A1c 6.0, NT-proBNP 1150 08/02 Patient seen and examined. BUN 19, creatinine 0.63. A1c 6.0. Triglycerides 74, cholesterol 193, LDL 129. Blood pressure 145/99, heart rate 69, pulse ox 96% on room air. 08/03 Patient seen and examined. Yesterday, patient underwent dobutamine stress echocardiogram that revealed nonspecific stress EKG portion secondary to baseline EKG abnormalities. Normal stress echo portion without inducible ischemia. Blood pressure 106/70, heart rate 65, pulse ox 97% on 2 L nasal cannula. Repeat blood work reveals BUN 19, creatinine 0.63. PHYSICAL EXAMINATION: Neck: Brisk carotid upstroke, no jugular venous distention. Lungs: Clear to auscultation. Heart: Irregularly irregular S1-S2, no murmur or rub. Abdomen: Soft, nontender, positive bowel sounds. Extremities: No edema, intact distal pulses. Neuro: Alert, oriented, no focal deficits. Detailed neuro exam was not performed. ASSESSMENT: # Atypical chest pain, ruled out of acute coronary syndrome # Persistent atrial fibrillation, rate control. Apparently first diagnosed in 2022 as per patient. # Essential hypertension, borderline elevated # HEF-PEF, currently euvolemic # COPD with chronic hypoxia on 2 liters of oxygen # Moderate pulmonary hypertension # Prediabetes # Obesity PLAN: Continue home medication and add Farxiga 10 mg and Aldactone 12.5 mg daily # Evaluate rhythm control for atrial fibrillation on an outpatient basis. With medical or electrical cardioversion and possible ablation procedure. Patient is cleared for discharge from cardiology and may follow-up in the office in 1 to 2 weeks. Nurse practitioner note has been reviewed, I agree with documented findings and plan of care. Patient was seen and examined. Objective - Vital Signs Vital signs: Vital Signs Temp 98.2 F 08/03/24 07:00 Pulse 65 08/03/24 07:00 Resp 18 08/03/24 07:00 BP 106/70 08/03/24 07:00 Pulse Ox 97 08/03/24 07:00 FiO2 Intake & Output 08/02/24 08/03/24 08/03/24 18:59 06:59 18:59 Other: Voiding Method Toilet Toilet # Voids 0 3 - Labs CBC & Chem 7: 07/30/24 13:07 08/01/24 07:09
--- NOTE | 2024-08-04 01:52 | PN ---
PROGRESS NOTE CHIEF COMPLAINT: Chest pain and shortness of breath with COPD. HISTORY OF PRESENT ILLNESS: This lady had cardiac study yesterday and report is pending. She will probably be able to go home soon. She is not having any chest pain. PHYSICAL EXAMINATION: CHEST: Clear. CARDIAC: Normal. ABDOMEN: Soft, nontender. IMPRESSION: 1. Chest pain. 2. Chronic obstructive pulmonary disease. PLAN: Await results of studies from Cardiology and that she might be able to go home. MMODL / IJN: [id number] /
[2024-08-04 07:36] VITALS: BP 141/71; PULSE 96; RESP 16; TEMP 98.3
--- NOTE | 2024-08-05 02:43 | DS ---
DISCHARGE SUMMARY CHIEF COMPLAINT: Difficulty breathing. HISTORY OF PRESENT ILLNESS AND PHYSICAL EXAM: Details of this lady's history and physical can be found in the initial workup. LABORATORY STUDIES: While she was in the hospital, she had laboratory studies, details of which can be found in the laboratory section of her chart. COURSE IN THE HOSPITAL: After admission, she was placed on bedrest, started on intravenous fluids and nasal O2. She was seen by Cardiology and she was followed for her chest pain. She underwent further cardiac studies, which were unremarkable. Cardiology felt that she could be discharged home on the and she will be followed up in the office in several days. FINAL DIAGNOSES: 1. Chest pain, noncardiac. 2. Exacerbation of chronic obstructive pulmonary disease. OPERATIONS: None. CONSULTATIONS: Cardiology. She is improved. MMERICL / CHAVEZN: [id number] /
--- NOTE | 2024-08-05 08:00 | P.PN ---
Subjective Progress Note Date: 08/04/24 HPI: The patient is a 73-year-old female with a history of heart failure with preserved ejection fraction (HEF-PEF), chronic hypoxia on 2 liters of oxygen, COPD, obesity, and hypertension. She presented due to substantial chest pressure that has been on and off for the last 2 to 3 days and worsening. This pressure is not related to activity, rest, or changes in position. She reports being in atrial fibrillation for the last 2 to 3 years without having undergone any ablation procedures. One month ago, she was hospitalized due to elevated blood pressure, which led to the initiation of lisinopril. She was also noticed to be in mild HFpEF exacerbation for which her Lasix was changed to Bumex. Pertinent Vitals: - BP: 150/79 mmHg - HR: 81 bpm Pertinent cardiac Labs: - Hgb: 12, WBC: 11, Platelets: 232, BUN: 19, Creatinine: 0.5 - Troponin x3: Negative - BNP: 1150, last admission in 06/2024 - 3000. Cardiac home meds: Bumetanide 1 mg daily, Lisinopril 40 mg daily, Metoprolol 25 mg BID, Eliquis 5 mg BID Pertinent cardiac testing: - EK07/2024: Atrial fibrillation, HR 93 bpm, normal axis - Echo: 06/2024: EF 55%, mild LVH, no obvious RWMA, mild RV dilatation, moderate pulmonary hypertension, RVSP 52 mmHg Progress note Seen and examined at bedside this a.m. reports feeling better. Denies any chest pain chest pressure at this time BUN 19, creatinine 0.6, tolerated the addition of Aldactone Farxiga yesterday, LDL 129, TSH 1.7, TG 74, A1c 6.0, NT-proBNP 1150 08/02 Patient seen and examined. BUN 19, creatinine 0.63. A1c 6.0. Triglycerides 74, cholesterol 193, LDL 129. Blood pressure 145/99, heart rate 69, pulse ox 96% on room air. 08/03 Patient seen and examined. Yesterday, patient underwent dobutamine stress echocardiogram that revealed nonspecific stress EKG portion secondary to baseline EKG abnormalities. Normal stress echo portion without inducible ischemia. Blood pressure 106/70, heart rate 65, pulse ox 97% on 2 L nasal cannula. Repeat blood work reveals BUN 19, creatinine 0.63. Today, patient had a systolic blood pressure 101 and did not receive any of her medications. We will discontinue Farxiga, Aldactone, and amlodipine. Monitor blood pressure. If blood pressure stable later this afternoon, patient is cleared for discharge. 08/04 Patient seen and examined. Yesterday, due to hypotension, Farxiga, Aldactone and amlodipine were all discontinued. Blood pressure readings today 141/71, heart rate 96, pulse ox 97% on 3 L nasal cannula. Patient states that she is feeling shaky and that she is having a hard time breathing. She denies chest pain or chest pressure now but states she had some earlier today and it was a sharp consistency. She continues to have tenderness at the chest wall. Repeat EKG was done and reviewed with no acute changes. Discussed treatment options with the patient and at this time do not recommend moving forward with a cardiac catheterization unless patient has significant symptoms. She states she has gotten up to the bathroom today and did not have any chest pain. PHYSICAL EXAMINATION: Neck: Brisk carotid upstroke, no jugular venous distention. Lungs: Clear to auscultation. Heart: Irregularly irregular S1-S2, no murmur or rub. Abdomen: Soft, nontender, positive bowel sounds. Extremities: No edema, intact distal pulses. Neuro: Alert, oriented, no focal deficits. Detailed neuro exam was not performed. ASSESSMENT: # Atypical chest pain, ruled out of acute coronary syndrome # Persistent atrial fibrillation, rate control. Apparently first diagnosed in 2022 as per patient. # Essential hypertension, borderline elevated # HEF-PEF, currently euvolemic # COPD with chronic hypoxia on 2 liters of oxygen # Moderate pulmonary hypertension # Prediabetes # Obesity PLAN: Continue home medication Continue to hold the additional medications of Aldactone, Farxiga, amlodipine Evaluate rhythm control for atrial fibrillation on an outpatient basis. With medical or electrical cardioversion and possible ablation procedure. Patient is cleared for discharge from cardiology and may follow-up in the office in 1 to 2 weeks. Nurse practitioner note has been reviewed, I agree with documented findings and plan of care. Patient was seen and examined. Objective - Vital Signs Vital signs: Vital Signs Temp 98.3 F 08/04/24 07:00 Pulse 96 08/04/24 07:00 Resp 16 08/04/24 07:00 BP 141/71 08/04/24 07:00 Pulse Ox 97 08/04/24 07:00 FiO2 Intake & Output 08/03/24 08/04/24 08/04/24 18:59 06:59 18:59 Intake Total 240 Balance 240 Intake: Oral 240 Other: Voiding Method Toilet # Voids 2 1 - Labs CBC & Chem 7: 07/30/24 13:07 08/01/24 07:09
== END 2024-08-04 12:57 | disposition home or self-care (01) ==
LOC: EC 12:51 → 6NMEDSUR 16:50
PROVIDERS: ADMIT Family Medicine; ATTEND Family Medicine
DX: J44.1 Chronic obstructive pulmonary disease with (acute) exacerbation (principal); R09.02 Hypoxemia; I11.0 Hypertensive heart disease with heart failure; I50.33 Acute on chronic diastolic (congestive) heart failure; I95.9 Hypotension, unspecified; I27.20 Pulmonary hypertension, unspecified; I48.19 Other persistent atrial fibrillation; R73.03 Prediabetes; E66.9 Obesity, unspecified; E78.5 Hyperlipidemia, unspecified; F32.A Depression, unspecified; F41.9 Anxiety disorder, unspecified; Z79.01 Long term (current) use of anticoagulants; Z79.899 Other long term (current) drug therapy; Z87.891 Personal history of nicotine dependence; Z99.81 Dependence on supplemental oxygen
CPT/HCPCS: 99285; 36415; 93005 ×2; 93351; 83880; 80061; 80053; 80048; 84443; 83735; 84484; 85025; 85610; 85730; 83036; 71045; G0378 ×6; Q9957